=== PATIENT | male | born 1985 | race Caucasian/White ===

== ENCOUNTER 2024-12-13 19:27 | Emergency (ER) | payer SELFPAY ==
[2024-12-13] VITALS (7 sets, daily range): BP systolic 108–129; BP diastolic 63–89; PULSE 74–118; RESP 13–95; TEMP 36.5; O2SAT 94–100
[2024-12-13 22:37] LABS: Hematocrit 37.3 % (42.0-52.0); Hemoglobin 12.1 g/dL (14.0-18.0); Mean Corpuscular HGB Conc 32.4 g/dl (32-36); Mean Corpuscular Hemoglobin 28.9 pg (26-34); Mean Corpuscular Volume 89.2 fl (80-100); Mean Platelet Volume 9.3 fl (7.4-10.4); Platelet Count Result 84 k/mm3 (150-375); Red Blood Count 4.18 M/mm3 (4.6-6.20); White Blood Count 5.6 K/mm3 (4.5-10.0)
--- OUTSIDE RECORDS SUMMARY | 2024-12-13 22:41 | XMS_ITS | Continuity of Care Document ---
Author Organization [facility] Address [address] [place] [address] Phone Care Team Providers Care Isotope Hydrologist Name Role Phone Dean Cruz D.D.S Unavailable Unavailabl e Allergies, Adverse Reactions, Alerts Substance Reaction Status Criticality No Known Allergies Active No Inform ation Procedures Procedure Date Extraction, Erupted Tooth Or Exposed Malissa t (Elevati Patient Education Extraction, Erupted Tooth Or Exposed Malissa t (Elevati Patient Summary Office Visit For Observation (During Reg ularly Darvin Patient Education Intraoral Periapical First Radiographic Image Patient Summary Advance Directives Directive Yes / No Effective Date File Name No Information Encounters Encounter Description Practice Location Reason(s) For Visit Diagnoses Date Provider Providers Copied on Encounter [facility], [address] [place] [address], [id number], [place] tel:[phone] [facility] Complete loss of teeth due to other specified cause, unspecified class Anthony Moran. [address], [place], [place], [id number], [place]. tel:[phone] [facility], [address] [place] [address], [id number], [place] tel:[phone] [facility] Encounter for dental examination and cleaning with abnormal findings Conrad Light. [facility], [place], [address]. tel:[phone] Family History Family Member Type Diagnosis Age At Onset No Information Payers Payer name Insurance type Covered green party ID Susana cowan(s) Padmini [facility] [id number] Social History Type Description Quantity Date Captured Comments Alcohol Use Details Unknown Caffeine Use Details Unknown Tobacco Use Status Current non-smoker Smoking Status Never smoker Non-Smoking Tobacco Use Details : No Details Available : No Details Available Sex Male Chief Complaint And Reason For Visit No Information Plan Of Treatment Date Type Action Status Goal Tdap. Due on due Goal Lipid panel. Due on 021 due Goal Influenza vaccine. Due on due Goal Td vaccine. Due on due Goal PPD (TST). Due on due Goal Hematocrit. Due on due History Of Present Illness Encounter Date Complaint History Of Prese nt Illness No Information Instructions Date Instruction Additional Infor mation No Information Assessments Type Assessment Date No Information
--- OUTSIDE RECORDS SUMMARY | 2024-12-13 22:41 | XMS_ITS | Encounter Summary ---
Author Organization [facility] Address [address] [place] [address] Care Team Providers Care Slime Plant Operator Helper Name Role Phone Berhane Soares MD Primary Care Provider + [phone] Encounter Details Date Type Department Care Team (Latest Contact Info) Description 10/20/2024 Results Follow-Up [facility] Gastroenterology at [address] [place] [address] Steven Reyes NP 4 [facility] [address] [place], [place] [id number] [place] Hepatobiliary Imaging [facility] Social History Tobacco Use Types Packs/Day Years Used Date Smoking Tobacco: Some Days Cigarettes Smokeless Tobacco: Never [facility] Utilities Answer Date Recorded In the past 12 months has [employer], gas, oil, or water company threatened to shut off services in your home? No 09/10/2024 Social Connection and Isolat ion Panel [NHANES] Answer Date Recorded In a typical week, how many times do you talk on the phone with family, friends, or neighbors? More than three times a week 09/10/2024 How often do you get togethe r with friends or relatives? Twice a week 09/10/2024 How often do you attend chur ch or voodoo services? Never 09/10/2024 Do you belong to any clubs o r organizations such as yazdanism groups, unions, fraternal or athletic groups, or school groups? No 09/10/2024 How often do you attend meet ings of the clubs or organizations you belong to? Never 09/10/2024 Are you , , di vorced, , never , or living with a partner? Never 09/10/2024 AUDIT-C Answer Date Recorded Q1: How often do you have a drink containing alcohol? 4 or more times a week 10/07/2024 Q2: How many drinks containi ng alcohol do you have on a typical day when you are drinking? Patient does not drink Q3: How often do you have si x or more drinks on one occasion? Less than monthly 10/07/2024 Overall Financial Resource Strain (CARDIA) Answe r Date Recorded How hard is it for you to pa y for the very basics like food, housing, medical care, and heating? Not hard at all 09/10/2024 PHQ-2 Answer Date Recorded PHQ-2 Total Score (If total score is 3 or more points, staff should administer the PHQ-9) 0 10/09/2024 Hunger Vital Sign Answer Date Recorded Within the past 12 months, y ou worried that your food would run out before you got the money to buy more. Never true 09/10/19 25 Within the past 12 months, t he food you bought just didn't last and you didn't have money to get more. Never true 09/10/2024 PRAPARE - Transportation Answer Date Re corded In the past 12 months, has l ack of transportation kept you from medical appointments or from getting medications? No 08/17 In the past 12 months, has l ack of transportation kept you from meetings, work, or from getting things needed for daily living? No 09/10/2024 Housing Stability Vital Sign Answer Alessandro e Recorded In the last 12 months, was t here a time when you were not able to pay the mortgage or rent on time? No 09/10/2024 In the past 12 months, how m any times have you moved where you were living? 0 09/10/2024 At any time in the past 12 m [facility], were you homeless or living in a [place] facility (including now)? No 09/10/2024 Personal Safety Answer Date Recorded Have you ever been in or are you currently in a harmful physical or emotional relationship or is someone making you feel afraid or unsafe? Denies 09/08/2024 Sex and Gender Information Value Date Recorded Sex Assigned at Not on file Legal Sex Male 1:42 PM CDT Gender Identity Not on file Sexual Orientation Not on file documented as of this encounter Miscellaneous Notes * Result Encounter Note - Steven Reyes NP - 10/20/2024 2:28 PM CDT HIDA scan normal. Gallbladder appears to be functioning without issue and not contributing to symptoms. documented in this encounter Plan of Treatment Not on file documented as of this encounter Visit Diagnoses Not on filedocumented in this encounter Care Teams Slime Plant Operator Helper Relationship Specialty Start Date End Date Berhane Soares MD [address] [facility] [address] MOHAN [address] [place] [id number] PCP - General Family Medicine 09/09/24 documented as of this encounter
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
--- OUTSIDE RECORDS SUMMARY | 2024-12-13 22:41 | XMS_ITS | Continuity of Care Document ---
Author Organization [facility] Address [address] [place] [address] Phone Care Team Providers Care Rate Clerk Passenger Name Role Phone David Mujica Unavailable Unavailable Procedures Procedure Date TEAM CONF W/PAT BY CHANTEL PRO Advance Directives Directive Yes / No Effective Date File Name No Information Encounters Encounter Description Practice Location Reason(s) For Visit Diagnoses Date Provider Providers Copied on Encounter [facility], [address] [place] [address], [id number], [place] tel:[phone] [facility] No Information Tang Hernandez. [address] [place], [address], [place]. tel:[phone] TEAM CONF W/PAT BY HC PRO [facility], [address] [place] [address], [id number], tel:[phone] [facility] ED Counseling, unspecified Rink Rat. [address] [place], [place], [id number]. tel:[phone] Family History Family Member Type Diagnosis Age At Onset No Information Payers Payer name Insurance type Covered constitution party ID Authoriza tion(s) No Information Social History Type Description Quantity Date Captured Comments Sex Male Smoking Status No Information Chief Complaint And Reason For Visit No Information Reason For Referral Reason For Referral No Information History Of Present Illness Encounter Date Complaint History Of Prese nt Illness No Information Functional Status Date Functional Assessmen t No Information Instructions Date Instruction Additional Infor mation No Information Assessments Type Assessment Date No Information Patient Care Teams Name Effective Dates (start - stop) Status Members No Information
--- OUTSIDE RECORDS SUMMARY | 2024-12-13 22:42 | XMS_ITS | Referral Summary ---
Author Organization [facility] Address [address] [place] [address] Care Team Providers Care Thermostat Maker Name Role Phone Berhane Soares MD Primary Care Provider Encounters Date Type Department Care Team Description 11/21/2024 9:30 AM CDT Office Visit [facility] at [address] [phone] Berhane Soares MD Alcohol use disorder (Primary Dx); Alcoholic cirrhosis of liver with ascites (HCC); Hepatic encephalopathy (HCC); Anxiety; Nausea and vomiting, unspecified vomiting type 11/17/[address] [facility] at [address] [phone] Berhaen Soares MD 11/13/2024 8:45 AM CDT - 11/15/2024 2:28 PM CDT Hospital Encounter [facility] [address] [place] [id number] Bogdan Zambrano MD Richards, John Albert Jr., MD Alcohol use disorder (Primary Dx); RUQ pain; Nausea and vomiting, unspecified vomiting type Discharge Disposition: Discharge to home or self care 11/14/2024 Documentation [facility] Warm Hand Off Program [address] [place] [address] Margarita Martinez 10/31/2024 [facility] ED Outreach [facility] Care Organization [address] [place] [id number] Elvia Naidu CMA 10/30/2024 6:28 PM CDT - 10/30/2024 9:41 PM CDT Emergency [facility] Emergency Department [address] [place] [address] Yaakov Pittman MD Wala, Cosme Gutierrez MD Abdominal pain, generalized (Primary Dx) Discharge Disposition: Discharge to home or self care 10/20/2024 Results Follow-Up [facility] Gastroenterology at [address] [place] [address] Steven Reyes NP [place] [facility]atobiliary [facility] 10/17/2024 11:50 AM CDT - 10/17/2024 11:59 PM CDT Hospital Encounter [facility] [address] [place] [address] RUQ pain; Nausea without vomiting Discharge Disposition: Discharge to home or self care 10/14/[address] [facility] Gastroenterology at [address] [place] [address] Jenny Connolly, KEVIN 10/13/2024 Telephone [facility] at [address] [place] [address] Jenny Connolly, DIETETIC TECHNICIAN 10/10/[address] [facility] Primary Care at [address] [place] [address] Berhane Soares MD Prior Auth - Anusol 10/10/2024 Results Follow-Up [facility] Gastroenterology at [address] [place] [address] Steven Reyes NP CBC with auto differential, [id number] , Tumor Marker, Hepatic function panel, Additional followed-up results: 2 10/10/[address] [facility] Residency [facility] at [address] [place] [address] Berhane Soares MD Pneumonia due to infectious organism, unspecified laterality, unspecified part of lung (Primary Dx) 10/09/2024 3:00 PM CDT Office Visit [facility] at [place] [address] [facility] [address] [place] [phone] Berhane Soares MD Acute cough (Primary Dx); Bleeding internal hemorrhoids; Hepatic encephalopathy (HCC); Folate deficiency; Alcoholic cirrhosis of liver with ascites (HCC); Elevated bilirubin; Difficulty sleeping; Wheezing 10/07/2024 9:00 AM CDT Lab [address] Alcoholic hepatitis with ascites (HCC); Hepatic steatosis; Hepatomegaly 10/07/2024 8:15 AM CDT Office Visit [facility] Gastroenterology at [address] [place] [address] Steven Reyes NP Alcoholic hepatitis with ascites (HCC) (Primary Dx); Hepatic steatosis; Hepatomegaly; Coagulopathy; Bleeding internal hemorrhoids; Constipation, unspecified constipation type; RUQ pain; Erosive esophagitis; Gastropathy; Leg swelling; Nausea without vomiting 09/09/2024 4:22 AM ARBORICULTURE INSTRUCTOR - 09/12/2024 3:12 PM ARBORICULTURE INSTRUCTOR Hospital Encounter [facility] [address] [place] [address] Aleja Coates MD Okonkwo, Kasiemobi Bernice, MD Abdominal pain (Primary Dx); Hepatosplenomegaly; Alcoholic hepatitis, unspecified whether ascites present (HCC); Rectal bleeding Discharge Disposition: Discharge to home or self care from Last 3 Months Allergies Active Allergy Reactions Criticality Noted Date Comments [place] Anaphylaxis High 08/07/2024 Medications benzonatate (TESSALON) 200 mg capsule Take 1 capsule (200 mg total) by mouth 3 (three) times a day 40 capsule Active fluticasone propionate (FLONASE) 50 mcg/actuation nasal spray Administer 2 sprays into each nostril 2 (two) times a day 1 each Active hydrOXYzine (ATARAX) 25 mg tablet Take 1 tablet (25 mg total) by mouth every 8 (eight) hours as needed for anxiety 90 tablet 02/28/2 025 Active Additional Information Patient not taking.Reported on 11/21/2024 simethicone (MYLICON) 125 mg chewable tablet Take 1 tablet (125 mg total) by mouth 4 (four) times a day as needed (cramping/bloat ing/gas/nausea) 120 tablet 3 Active albuterol HFA (PROVENTIL HFA,VENTOLIN HFA,PROAIR HFA) 90 mcg/actuation inhaler Inhale 2 puffs every 6 (six) hours as needed for wheezing 3 each 4 025 2025 Active budesonide-formot Julisa (SYMBICORT) 80-4.5 mcg/actuation inhaler Inhale 2 puffs 2 (two) times a day Rinse mouth with water after use. Do not swallow. 1 each Active hydrocortisone 2.5 % creamIndications: Internal hemorrhoids Apply topically 2 (two) times a day 453.6 g Active oxyBUTYnin XL (DITROPAN-XL) 10 mg 24 hr tablet Take 1 tablet (10 mg total) by mouth daily 30 tablet Active guaiFENesin ER (MUCINEX) 600 mg 12 hr tablet Take 1 tablet (600 mg total) by mouth 2 (two) times a day 60 tablet Active metoclopramide (REGLAN) 10 mg tablet Take 1 tablet (10 mg total) by mouth 3 (three) times a day before meals for 14 doses 14 tablet Active chlordiazePOXIDE (LIBRIUM) 25 mg capsule Take 2 capsules (50 mg total) by mouth 2 (two) times a day for 1 day, THEN 1 capsule (25 mg total) 2 (two) times a day for 1 day, THEN 1 capsule (25 mg total) daily for 1 day. 7 capsule Active lactulose solution 10 gram/15mLIndicati ons:Hepatic encephalopathy (HCC) Take 15-30 mL up to 3 times daily for constipation management. 946 mL 5 Active busPIRone (BUSPAR) 15 mg tabletIndications :Anxiety Take 1 tablet (15 mg total) by mouth 2 (two) times a day 60 tablet 2024 Active ondansetron (ZOFRAN) 4 mg tabletIndications :Nausea and vomiting, unspecified vomiting type Take 1 tablet (4 mg total) by mouth 4 (four) times a day as needed for nausea or vomiting 20 tablet [address] (PROTONIX) 40 mg EC tabletIndications :Nausea and vomiting, unspecified vomiting type Take 1 tablet (40 mg total) by mouth daily 30 tablet 3 Active traZODone (DESYREL) 50 mg tabletIndications :Anxiety Take 1 tablet (50 mg total) by mouth nightly as needed for sleep 90 tablet 3 2025 Active naltrexone microspheres (VIVITROL) 380 mg suspension,extend ed rel reconIndications: Alcohol use disorder Inject 380 mg into the muscle as instructed every 30 (thirty) days 1.2 each Active folic acid (FOLVITE) 1 mg tablet Take 1 tablet (1 mg total) by mouth daily 30 tablet 1 2024 Discontinued(S top Taking at Discharge) pentoxifylline ER (TRENtal) 400 mg CR tablet Take 1 tablet (400 mg total) by mouth 3 (three) times a day with meals 90 tablet 1 2024 Discontinued(S top Taking at Discharge) traMADoL (ULTRAM) 50 mg tablet Take 1 tablet (50 mg total) by mouth 2 (two) times a day as needed for pain for up to 7 days 14 tablet 2024 Discontinued(S top Taking at Discharge) ondansetron (ZOFRAN) 4 mg tablet Take 1 tablet (4 mg total) by mouth 4 (four) times a day as needed for nausea or vomiting 20 tablet 3 2024 Discontinued(R eorder) lactulose solution 10 gram/15mL Take 15-30 mL up to 3 times daily for constipation management. 946 mL 5 2024 Discontinued(R eorder) pantoprazole DR (PROTONIX) 40 mg EC tablet Take 1 tablet (40 mg total) by mouth daily 30 tablet 3 2024 Discontinued(R eorder) traZODone (DESYREL) 50 mg tablet Take 1 tablet (50 mg total) by mouth nightly as needed for sleep 30 tablet 025 2024 Discontinued(R eorder) busPIRone (BUSPAR) 5 mg tablet Take 1 tablet (5 mg total) by mouth 2 (two) times a day 60 tablet 025 2024 Discontinued cyclobenzaprine (FLEXERIL) 10 mg tablet Take 1 tablet (10 mg total) by mouth 2 (two) times a day as needed for muscle spasms for up to 7 days 14 tablet 025 2024 Discontinued(S top Taking at Discharge) chlordiazePOXIDE (LIBRIUM) 25 mg capsule Take 2 capsules (50 mg total) by mouth 2 (two) times a day for 1 day, THEN 1 capsule (25 mg total) 2 (two) times a day for 1 day, THEN 1 capsule (25 mg total) daily for 1 day. 7 capsule 025 2024 Discontinued Active Problems Problem Noted Date Diagnosed Date Acute alcoholic gastritis with hemorrhage 2024 RUQ pain 11/15/2024 Hypokalemia 11/14/2024 Nausea & vomiting 11/13/2024 Assessment & Plan (11/21/2024 10:53 AM CDT): Likely in the setting of encephalopathy/cirrhosis/alcoholic gastropathy; we will provide refills for symptomatic relief of nausea. - Zofran 4 mg PRN Metabolic acidosis 11/13/2024 SERA (generalized anxiety disorder) 11/13/2024 Urge incontinence of urine 11/13/2024 Anxiety 10/20/2024 Assessment & Plan (11/21/2024 10:52 AM CDT): Reports significant improvement with BuSpar 5 mg, does report that he wishes it lasted longer throughout the day. - BuSpar increased from 5 mg starting dose to 15 mg b.i.d - If adequate response, consider increasing BuSpar 15 mg t.i.d. Assessment & Plan (10/20/2024 2:45 PM CDT): Known hx, chronic, stable. Pt previously trialed Prozac which he reports didn't work well for him. - Trial of Buspar 5 mg BID and reassess. Wheezing 10/09/2024 Acute cough 10/09/2024 Assessment & Plan (10/09/2024 5:07 PM CDT): Acute, uncontrolled; he reports that he's been coughing for the past 3-4 days. Suspected PNA. Swab testing is negative; this does not r/o infx etiology; he has significant sputum productive cough with wheezing. - CXR for wheezing. - Antibiotics; Augmentin 875 mg for 10 days. - inhalers prescribed as he is using his wifes. Difficulty sleeping 10/09/2024 Assessment & Plan (10/09/2024 5:06 PM CDT): Known hx, chronic, stable. While hospitalized he reports trazodone being helpful. - Will provide Rx for 30 days and reassess at next visit Hepatic steatosis 10/07/2024 Hepatomegaly 10/07/2024 Bleeding internal hemorrhoids 10/07/2024 Assessment & Plan (10/09/2024 4:55 PM CDT): Known history, chronic, stable. Patient reports he is out of hydrocortisone suppositories and is requesting refills. He was scoped by GI and no identifiable causes of bleeding were identified other than internal hemorrhoids. - Anusol 25 mg suppository refilled Erosive esophagitis 10/07/2024 Leukocytosis 09/09/2024 Dysuria 09/09/2024 Melena 09/09/2024 URI (upper respiratory infection) 09/09/2024 Rectal bleeding 09/08/2024 Alcoholic cirrhosis of liver with ascites 2024 Assessment & Plan (10/09/2024 4:55 PM CDT): Known history, chronic, recently completed visit with GI. They recommended to continue lactulose therapy and close follow-up - Continue GI workup/management; lactulose Alcohol withdrawal delirium 08/23/2024 Macrocytic anemia 08/23/2024 Folate deficiency 08/23/2024 Assessment & Plan (10/09/2024 4:59 PM CDT): Known hx, chronic. - continue to replace folate. Hepatic encephalopathy 08/23/2024 Assessment & Plan (11/21/2024 10:51 AM CDT): Known history, chronic, stable. We will provide refills of lactulose, he reports compliance daily - Refill lactulose Assessment & Plan (10/09/2024 4:59 PM CDT): Known hx, chronic, stable. Remains abstinent for 56 days. Following up w/ GI; mood appropriate no concerns for encephalopathy today. He reports compliance with lactulose and that he had stopped it for several months before leading up to his hospitalization. - continue current management. Alcoholic hepatitis with ascites 08/21/2024 Coffee ground emesis 08/07/2024 SIRS (systemic inflammatory response syndrome) 0 08/07/2024 Acute on chronic anemia 08/07/2024 Alcohol use disorder 08/07/2024 Assessment & Plan (11/21/2024 10:50 AM CDT): Relapse in the setting of ETOH use disorder. Successfully remain clean for 100 days. Established with WHO and has adequate social support. - Vivitrol as monthly injections to help with cravings (patient reports insurance coverage has lapsed and will resume December 14, 2024) Sepsis 08/07/2024 Upper GI bleed 08/07/2024 Elevated bilirubin 08/07/2024 Assessment & Plan (10/09/2024 5:03 PM CDT): Per labs done by GI on 10/07, continues to have persistently elevated bilirubin but significantly improved from admission. Discussed and educated about bilirubin and how it is a RBC product breakdown and that lactulose will help with skin coloration. - Continue lactulose and management per GI Moderate protein-calorie malnutrition 08/07/2024 Fever, unspecified fever cause 08/06/2024 Abdominal pain 08/06/2024 Resolved Problems Problem Noted Date Diagnosed Date Resolved Date Cirrhosis 09/09/2024 10/07/2024 Hepatitis 09/09/2024 10/07/2024 Social History Tobacco Use Types Packs/Day Years Used Date Smoking Tobacco: Some Days Cigarettes 0.7 0.4 Started: 2024 Smokeless Tobacco: Never Tobacco Cessation:Ready to Q uit: Not Asked; Counseling Given: Not Answered [facility] Utilities Answer Date Recorded In the past 12 months has th e electric, gas, oil, or water company threatened to shut off services in your home? No 11/14/2024 Social Connection and Isolat ion Panel [NHANES] Answer Date Recorded In a typical week, how many times do you talk on the phone with family, friends, or neighbors? More than three times a week 11/14/2024 How often do you get togethe r with friends or relatives? Twice a week 11/14/2024 How often do you attend chur ch or druze services? Never 11/14/2024 Do you belong to any clubs o r organizations such as mormonism groups, unions, fraternal or athletic groups, or school groups? No 11/14/2024 How often do you attend meet ings of the clubs or organizations you belong to? Never 11/14/2024 Are you , , di vorced, , never , or living with a partner? 11/14/2024 AUDIT-C Answer Date Recorded Q1: How often do you have a drink containing alcohol? Never 11/21/2024 Q2: How many drinks containi ng alcohol do you have on a typical day when you are drinking? Patient does not drink Q3: How often do you have si x or more drinks on one occasion? Never 11/21/2024 Overall Financial Resource Strain (CARDIA) Answe r Date Recorded How hard is it for you to pa y for the very basics like food, housing, medical care, and heating? Not hard at all 11/14/2024 PHQ-2 Answer Date Recorded PHQ-2 Total Score (If total score is 3 or more points, staff should administer the PHQ-9) 0 11/21/2024 Hunger Vital Sign Answer Date Recorded Within the past 12 months, y ou worried that your food would run out before you got the money to buy more. Never true 11/15/19 25 Within the past 12 months, t he food you bought just didn't last and you didn't have money to get more. Never true 11/14/2024 PRAPARE - Transportation Answer Date Re corded In the past 12 months, has l ack of transportation kept you from medical appointments or from getting medications? No 08/2024 In the past 12 months, has l ack of transportation kept you from meetings, work, or from getting things needed for daily living? No 11/14/2024 Housing Stability Vital Sign Answer Alessandro e Recorded In the last 12 months, was t here a time when you were not able to pay the mortgage or rent on time? No 11/14/2024 In the past 12 months, how m any times have you moved where you were living? 0 11/14/2024 At any time in the past 12 m [facility], were you homeless or living in a prison (including now)? No 11/14/2024 Personal Safety Answer Date Recorded Have you ever been in or are you currently in a harmful physical or emotional relationship or is someone making you feel afraid or unsafe? Denies 11/13/2024 Sex and Gender Information Value Date Recorded Sex Assigned at Not on file Legal Sex Male 1:42 PM CDT Gender Identity Not on file Sexual Orientation Not on file Last Filed Vital Signs Vital Sign Reading Time Taken Comments Blood Pressure 122/64 11/21/2024 9:39 AM CDT Pulse 96 11/21/2024 9:39 AM CDT Temperature 36.5 C (97.7 F) 11/15/2024 10:43 AM CDT Respiratory Rate 18 11/21/2024 9:39 AM CDT Oxygen Saturation 99% 11/21/2024 9:39 AM CDT Inhaled Oxygen Concentration - - Weight 64.5 kg (142 lb 1.6 oz) 11/21/2024 9:39 A M CDT Height 167.6 cm (5' 5.98) 11/21/2024 9:39 AM CD T Body Mass Index 22.95 11/21/2024 9:39 AM CDT Plan of Treatment Not on file Procedures Procedure Name Priority Date/Time Associated Diagnosis Comments MAGNESIUM Routine 11/15/2024 10:11 AM CDT EGFR Routine 11/15/2024 5:31 AM CDT CBC WITHOUT DIFFERENTIAL Routine 11/15/2024 5:31 AM CDT COMPREHENSIVE METABOLIC PANEL Routine 11/15/2024 5:31 AM CDT EGFR Routine 11/14/2024 8:17 AM CDT CBC WITHOUT DIFFERENTIAL Routine 11/14/2024 8:17 AM CDT COMPREHENSIVE METABOLIC PANEL Routine 11/14/2024 8:17 AM CDT XR CHEST 1 VIEW ED 11/13/2024 11:07 AM CDT US RUQ ED 11/13/2024 10:06 AM CDT ANTIBODY SCREEN STAT 11/13/2024 10:06 AM CDT ABO/RH STAT 11/13/2024 10:06 AM CDT TYPE AND SCREEN STAT 11/13/2024 10:06 AM CDT AMMONIA STAT 11/13/2024 9:07 AM CDT MAGNESIUM Add-On 11/13/2024 8:48 AM CDT EGFR STAT 11/13/2024 8:48 AM CDT ACETAMINOPHEN LEVEL STAT 11/13/2024 8 :48 AM CDT DIFFERENTIAL AUTO STAT 11/13/2024 8:4 8 AM CDT PROTIME-INR STAT 11/13/2024 8:48 AM CDT LIPASE STAT 11/13/2024 8:48 AM CDT COMPREHENSIVE METABOLIC PANEL STAT 11/13/2024 8:48 AM CDT CBC WITH AUTO DIFFERENTIAL STAT 11/13/2024 8:[address] ABDOMEN PELVIS W CONTRAST ED 10/30/2024 7:40 PM CDT DRUGS OF ABUSE SCREEN, URINE WITH REFLEX CONFIRMATION Routine 10/30/2024 7:38 PM CDT EGFR STAT 10/30/2024 7:15 PM CDT ETHANOL Routine 10/30/2024 7:15 PM CDT CREATINE KINASE (CK), TOTAL STAT 10/30/2024 7:15 PM CDT COMPREHENSIVE METABOLIC PANEL STAT 10/30/2024 7:15 PM CDT URINALYSIS AND REFLEX TO MICROSCOPIC AND CULTURE STAT 10/30/2024 1:45 PM CDT EGFR STAT 10/30/2024 1:38 PM CDT DIFFERENTIAL AUTO STAT 10/30/2024 1:3 8 PM CDT LIPASE STAT 10/30/2024 1:38 PM CDT COMPREHENSIVE METABOLIC PANEL STAT 10/30/2024 1:38 PM CDT CBC WITH AUTO DIFFERENTIAL STAT 10/30/2024 1:38 PM CDT NM HEPATOBILIARY IMAGING W PHARMACEUTICAL INTERVENTION Schedule Routine, Read Routine (OP Routine) 10/17/2024 2:07 PM CDT RUQ pain Nausea without vomiting POC INFLUENZA A/B, COVID-19 ANTIGEN Routine 10/09/2024 2:50 PM CDT Acute cough DIFFERENTIAL AUTO Routine 10/07/2024 8:5 9 AM CDT Alcoholic hepatitis with ascites (HCC) Hepatic steatosis Hepatomegaly FIBRO TEST-ACTI TEST Routine 10/07/2024 8:59 AM CDT Alcoholic hepatitis with ascites (HCC) Hepatic steatosis Hepatomegaly HEPATIC FUNCTION PANEL Routine 10/07/2024 8:59 AM CDT Alcoholic hepatitis with ascites (HCC) Hepatic steatosis Hepatomegaly [id number], TUMOR MARKER Routine 10/07/2024 8:59 AM CDT Alcoholic hepatitis with ascites (HCC) Hepatic steatosis Hepatomegaly CBC WITH AUTO DIFFERENTIAL Routine 10/07/2024 8:59 AM CDT Alcoholic hepatitis with ascites (HCC) Hepatic steatosis Hepatomegaly MANUAL DIFFERENTIAL Routine 09/12/2024 7 :20 AM ARBORICULTURE INSTRUCTOR EGFR Routine 09/12/2024 7:20 AM ARBORICULTURE INSTRUCTOR ZINC Routine 09/12/2024 7:20 AM ARBORICULTURE INSTRUCTOR FIBRINOGEN Routine 09/12/2024 7:20 AM ARBORICULTURE INSTRUCTOR PROTIME-INR Routine 09/12/2024 7:20 AM ARBORICULTURE INSTRUCTOR COMPREHENSIVE METABOLIC PANEL Routine 09/12/2024 7:20 AM ARBORICULTURE INSTRUCTOR CBC WITH AUTO DIFFERENTIAL Routine 09/12/2024 7:20 AM ARBORICULTURE INSTRUCTOR HEPATITIS PANEL, ACUTE Routine 08/08/2024 6:10 AM ARBORICULTURE INSTRUCTOR from Last 3 Months or Most Recently Relevant to Health Maintenance Results * Magnesium (11/15/2024 10:11 AM CDT) Magnesium 1.4 1.4 - 2.5 mg/dL Blood 11/15/2024 10:1 1 AM CDT 11/15/2024 10:15 AM CDT us Inocencio Marie Jr., MD LAB BLOOD ORDERABLE S Final Result [facility] ([place]) [facility] Department [place] [address] * eGFR (11/15/2024 5:31 AM CDT) eGFR >90 >=60 mL/min/1. 73 m2 Comment: Interpretive Data Reference Interval Normal >/= 90 mL/min/1.73m2 Mildly decreased* 60 - 89 mL/min/1.73m2 Mildly to moderately decreased 45 - 59 mL/min/1.73m2 Moderately to severely decreased 30 - 44 mL/min/1.73m2 Severely decreased 15 - 29 mL/min/1.73m2 Kidney Failure < 15 mL/min/1.73m2 *Relative to young adult level Estimated glomerular filtration rate is determined by the 2020 CKD-EPI equation recommended by the National Kidney Foundation (A Unifying Approach to GFR Estimation: Recommendations of the NKF-ASK Task Force on Reassessing the Inclusion of Race in Diagnosing Kidney Disease, JASN 2020). The CKD-EPI equation should not be used for patients with unstable renal function and has not been validated in children and those over 70. Current interpretive data was last reviewed 2021. Blood 11/15/2024 5:31 AM CDT 11/15/2024 6:24 AM CDT us Inocencio Marie Jr., MD LAB BLOOD ORDERABLE S Final Result [facility] ([place]) [address] [facility] Department [place] [address] * (ABNORMAL) CBC without differential (11/15/2024 5:31 AM CDT) WBC 4.83 3.80 - 9.90 K/cumm Hgb 10.9(L) 13.0 - 17.5 g/dL [facility] ([place]) Hct 32.1(L) 38.9 - 50.3 % [facility] ([place] Plt 120(L) 150 - 400 K/cumm [facility] ([place] MPV 9.2 9.1 - 12.3 fL [facility] ([place]) RBC 3.61(L) 4.30 - 5.80 M/cumm [facility] ([place]) MCV 88.9 81.3 - 96.4 fL [facility] ([place] MCH 30.2 27.1 - 33.3 pg [facility] ([place] MCHC 34.0 32.3 - 35.7 g/dL [facility] ([place] RDW CV 13.0 11.1 - 14.9 % [facility] ([place] RDW SD 41.9 35.7 - 48.1 fL [facility] ([place] NRBC abs 0.00 0.00 - 0.01 K/cumm [facility] ([place]) Blood 11/15/2024 5:31 AM CDT 11/15/2024 6:24 AM CDT us Inocencio Marie Jr., MD LAB BLOOD ORDERABLE S Final Result [facility] ([place] [address] [facility] Department [place] [address] * (ABNORMAL) Comprehensive metabolic panel (11/15/2024 5:31 AM CDT) Sodium 138 135 - 145 mmol/L Potassium, pl 3.5 3.3 - 4.9 mmol/L [facility] ([place]) Chloride 102 97 - 110 mmol/L [facility] ([place]) CO2 24 22 - 32 mmol/L [facility] ([place] Anion gap 12 2 - 15 mmol/L [facility] ([place]) BUN <3(L) 6 - 25 mg/dL [facility] ([place]) Creatinine 0.66(L) 0.80 - 1.30 mg/dL [facility] ([place]) Comment:Icteric sample, test results may be affected. Glucose 91 70 - 199 mg/dL [facility] ([place]) Comment: Interpretive Data Fasting glucose >/= 126 mg/dl is diagnostic for diabetes. Fasting is defined as no caloric intake for at least 8 hours. Fasting glucose between 100 mg/dl to 125 mg/dl is diagnostic of prediabetes. In a patient with classic symptoms of hyperglycemia or hyperglycemic crisis, a random glucose >/= 200 mg/dl is diagnostic for diabetes. In the absence of unequivocal hyperglycemia, results should be confirmed by repeat testing. The classification and Diagnosis of Diabetes Diabetes Care 2021; 46: S19-S40. Current interpretive data was last revised 2022. Calcium 8.5 8.5 - 10.3 mg/dL [facility] ([place]) Bilirubin, total 2.0(H) 0.1 - 1.2 mg/dL [facility] ([place]) Protein, pl 6.6 6.5 - 8.5 g/dL [facility] ([place]) Albumin 3.3(L) 3.5 - 5.0 g/dL [facility] ([place]) Alk phos 268(H) 40 - 130 Units/L [facility] ([place]) ALT 14 7 - 55 Units/L [facility] ([place]) AST 39 10 - 50 Units/L [facility] ([place]) Blood 11/15/2024 5:31 AM CDT 11/15/2024 6:24 AM CDT Inocencio Marie Jr., MD LAB BLOOD ORDERABLE S Final Result [facility] ([place] Department [place] [address] * eGFR (11/14/2024 8:17 AM CDT) eGFR >90 >=60 mL/min/1. 73 m2 Comment: Interpretive Data Reference Interval Normal >/= 90 mL/min/1.73m2 Mildly decreased* 60 - 89 mL/min/1.73m2 Mildly to moderately decreased 45 - 59 mL/min/1.73m2 Moderately to severely decreased 30 - 44 mL/min/1.73m2 Severely decreased 15 - 29 mL/min/1.73m2 Kidney Failure < 15 mL/min/1.73m2 *Relative to young adult level Estimated glomerular filtration rate is determined by the 2020 CKD-EPI equation recommended by the National Kidney Foundation (A Unifying Approach to GFR Estimation: Recommendations of the NKF-ASK Task Force on Reassessing the Inclusion of Race in Diagnosing Kidney Disease, JASN 2020). The CKD-EPI equation should not be used for patients with unstable renal function and has not been validated in children and those over 70. Current interpretive data was last reviewed 2021. Blood 11/14/2024 8:17 AM CDT 11/14/2024 8:37 AM CDT us Inocencio Mraie Jr., MD LAB BLOOD ORDERABLE S Final Result Performing Organization Address City/State/[facility] de Phone Number [facility] ([place]) 1 [facility] Department [place] [address] * (ABNORMAL) CBC without differential (11/14/2024 8:17 AM CDT) WBC 5.11 3.80 - 9.90 K/cumm Hgb 10.7(L) 13.0 - 17.5 g/dL [facility] ([place]) Hct 31.0(L) 38.9 - 50.3 % [facility] ([place]) Plt 118(L) 150 - 400 K/cumm [facility] ([place]) MPV 8.8(L) 9.1 - 12.3 fL [facility] ([place]) RBC 3.53(L) 4.30 - 5.80 M/cumm [facility] ([place]) MCV 87.8 81.3 - 96.4 fL [facility] ([place]) MCH 30.3 27.1 - 33.3 pg [facility] ([place]) MCHC 34.5 32.3 - 35.7 g/dL [facility] ([place]) RDW CV 12.8 11.1 - 14.9 % [facility] ([place]) RDW SD 40.4 35.7 - 48.1 fL [facility] ([place]) NRBC abs 0.00 0.00 - 0.01 K/cumm [facility] ([place]) Blood 11/14/2024 8:17 AM CDT 11/14/2024 8:37 AM CDT us Inocencio Marie Jr., MD LAB BLOOD ORDERABLE S Final Result [facility] ([place]) 1 [facility] Department [place] [address] * (ABNORMAL) Comprehensive metabolic panel (11/14/2024 8:17 AM CDT) Sodium 134(L) 135 - 145 mmol/L Potassium, pl 3.2(L) 3.3 - 4.9 mmol/L [facility] ([place]) Chloride 96(L) 97 - 110 mmol/L [facility] ([place]) CO2 24 22 - 32 mmol/L [facility] ([place]) Anion gap 14 2 - 15 mmol/L [facility] ([place]) BUN <3(L) 6 - 25 mg/dL [facility] ([place]) Creatinine 0.63(L) 0.80 - 1.30 mg/dL [facility] ([place]) Comment:Icteric sample, test results may be affected. Glucose 126 70 - 199 mg/dL [facility] ([place]) Comment: Interpretive Data Fasting glucose >/= 126 mg/dl is diagnostic for diabetes. Fasting is defined as no caloric intake for at least 8 hours. Fasting glucose between 100 mg/dl to 125 mg/dl is diagnostic of prediabetes. In a patient with classic symptoms of hyperglycemia or hyperglycemic crisis, a random glucose >/= 200 mg/dl is diagnostic for diabetes. In the absence of unequivocal hyperglycemia, results should be confirmed by repeat testing. The classification and Diagnosis of Diabetes Diabetes Care 2021; 46: S19-S40. Current interpretive data was last revised 2022. Calcium 8.2(L) 8.5 - 10.3 mg/dL [facility] ([place]) Bilirubin, total 2.1(H) 0.1 - 1.2 mg/dL [facility] ([place]) Protein, pl 6.6 6.5 - 8.5 g/dL [facility] ([place]) Albumin 3.3(L) 3.5 - 5.0 g/dL [facility] ([place]) Alk phos 274(H) 40 - 130 Units/L [facility] ([place]) ALT 17 7 - 55 Units/L [facility] ([place]) AST 45 10 - 50 Units/L [facility] ([place]) Blood 11/14/2024 8:17 AM CDT 11/14/2024 8:37 AM CDT us Inocencio Marie Jr., MD LAB BLOOD ORDERABLE S Final Result [facility] ([place]) 1 [facility] Department [place] [address] * XR Chest 1 View (11/13/2024 11:07 AM CDT) Anatomical Region Laterality Modality Body, Chest N/A Computed Radiogr aphy 11/13/2024 11:3 2 AM CDT Narrative 11/13/2024 11:32 AM CDT EXAM DESCRIPTION: XR CHEST 1 VIEW REASON FOR STUDY: dyspnea, c/f pna Pt arrived via EMS. Pt report been vomiting for 1x day. Pt also reports RUQ pain to the abdomen. HX of cirrhosis of the liver. TECHNIQUE: Single frontal radiographic view(s) of the chest. COMPARISON: 08/24/2024 FINDINGS: The heart size is stable. The pulmonary vasculature and mediastinum are grossly stable. There is no definite evidence of a pneumothorax. There is no definite evidence of pleural effusion. There are subtle patchy left perihilar and bibasilar airspace opacities. The osseous structures are acutely grossly stable. IMPRESSION: Subtle patchy left perihilar and bibasilar airspace opacities, which may be related to subsegmental atelectasis/scarring versus developing airspace disease. THIS IS AN ELECTRONICALLY VERIFIED FINAL REPORT 11/13/2024 11:32 AM - Electronically signed by Kaylie Echols D.O. PS: PS Report ID: [id number] Reading Location: [id number] Procedure Note Kaylie Echols, - 11/13/2024 EXAM DESCRIPTION: XR CHEST 1 VIEW REASON FOR STUDY: dyspnea, c/f pna Pt arrived via EMS. Pt report been vomiting for 1x day. Pt also reportsRUQ pain to the abdomen. HX of cirrhosis of the liver. TECHNIQUE: Single frontal radiographic view(s) of the chest. COMPARISON: 08/24/2024 FINDINGS: The heart size is stable. The pulmonary vasculature and mediastinum are grossly stable. There is no definite evidence of a pneumothorax. Thereis no definite evidence of pleural effusion. There are subtle patchy leftperihilar and bibasilar airspace opacities. The osseous structures are acutely grossly stable. IMPRESSION: Subtle patchy left perihilar and bibasilar airspace opacities, which maybe related to subsegmental atelectasis/scarring versus developing airspace disease. THIS IS AN ELECTRONICALLY VERIFIED FINAL REPORT 11/13/2024 11:32 AM - Electronically signed by Kaylie Echols D.O. PS: PS Report ID: [id number] Reading Location: [place] [address] us Bogdan Zambrano MD IMG XR PROCEDURES F inal Result * US RUQ (11/13/2024 10:06 AM CDT) Anatomical Region Laterality Modality Abdomen N/A Ultrasound 11/13/2024 10:1 0 AM CDT Narrative 11/13/2024 10:12 AM CDT EXAM DESCRIPTION: US RUQ REASON FOR STUDY: History of cirrhosis with pain, assess for portal vein thrombosis. TECHNIQUE: Ultrasound of the right upper quadrant of the abdomen was performed with grayscale and color Doppler. COMPARISON: CT abdomen and pelvis 10/30/2024. FINDINGS: PANCREAS: Visualized portions of the pancreas are within normal limits. Portions of the pancreatic body and tail are obscured due to bowel gas. LIVER: The liver is increased in echogenicity. There is a nodular surface contour. Liver measures 21.1 cm. No focal hepatic lesions are seen. Antegrade direction of flow shown in the main portal vein. There are no findings of portal vein thrombosis. No filling defects are seen where assessed sonographically. GALLBLADDER: No echogenic shadowing gallstones. There is mild gallbladder wall thickening 0.7 cm. No pericholecystic fluid. Director Epidemiology reports negative sonographic Styles's sign. BILIARY: There is no intrahepatic biliary ductal dilatation. The common bile duct measures 0.6 cm in diameter. RIGHT KIDNEY: Right kidney is 11.2 cm in length. There is no hydronephrosis. The echogenicity is normal. OTHER: No other significant finding. IMPRESSION: No evidence of portal vein thrombosis. Hepatomegaly and hepatic steatosis. Nodular surface contour of the liver consistent with cirrhosis. Gallbladder wall thickening which is nonspecific but may be related to underlying liver disease. If further assessment were needed, could consider HIDA scan. THIS IS AN ELECTRONICALLY VERIFIED FINAL REPORT 11/13/2024 10:12 AM - Electronically signed by Kostas Grove M.D. CH: MEME Report ID: [id number] Reading Location: [id number] Procedure Note Kostas Grove Jr., MD - 11/13/2024 EXAM DESCRIPTION: US RUQ REASON FOR STUDY: History of cirrhosis with pain, assess for portal vein thrombosis. TECHNIQUE: Ultrasound of the right upper quadrant of the abdomen wasperformed with grayscale and color Doppler. COMPARISON: CT abdomen and pelvis 10/30/2024. FINDINGS: PANCREAS: Visualized portions of the pancreas are within normal limits. Portions of the pancreatic body and tail are obscured due to bowel gas. LIVER: The liver is increased in echogenicity. There is a nodularsurface contour. Liver measures 21.1 cm. No focal hepatic lesions are seen. Antegrade direction of flow shown in the main portal vein. There are no findings of portal vein thrombosis. No filling defects are seen where assessed sonographically. GALLBLADDER: No echogenic shadowing gallstones. There is mildgallbladder wall thickening 0.7 cm. No pericholecystic fluid. Director Epidemiology reports negative sonographic Styles's sign. BILIARY: There is no intrahepatic biliary ductal dilatation. The commonbile duct measures 0.6 cm in diameter. RIGHT KIDNEY: Right kidney is 11.2 cm in length. There is nohydronephrosis. The echogenicity is normal. OTHER: No other significant finding. IMPRESSION: No evidence of portal vein thrombosis. Hepatomegaly and hepatic steatosis. Nodular surface contour of the liver consistent with cirrhosis. Gallbladder wall thickening which is nonspecific but may be related to underlying liver disease. If further assessment were needed, couldconsider HIDA scan. THIS IS AN ELECTRONICALLY VERIFIED FINAL REPORT 11/13/2024 10:12 AM - Electronically signed by Kostas Grove M.D. CH: MEME Report ID: [id number] Reading Location: [place] [address] Bogdan Zambrano MD IMG US PROCEDURES F inal Result * ABO/Rh (11/13/2024 10:06 AM CDT) ABO/Rh A Positive Blood 11/13/2024 10:0 6 AM CDT 11/13/2024 10:09 AM CDT Narrative [facility] ([place]) - 11/13/2024 10:50 AM CDT Has the patient had Daratumumab or Isatuximab in the past 6 months?->Unknown Bogdan Zambrano MD LAB BLOOD BANK TEST ORDERABLES Final Result Performing Organization Address City/[facility]/ZIP Co de Phone Number [facility] ([place]) [address] [place] [address] [place] [address] * Antibody screen (11/13/2024 10:06 AM CDT) Bryan, indirect, Gel Interpretation Negative ABSC Blood 11/13/2024 10:0 6 AM CDT 11/13/2024 10:09 AM CDT Narrative [facility] ([place]) - 11/13/2024 10:50 AM CDT Has the patient had Daratumumab or Isatuximab in the past 6 months?->Unknown Bogdan Zambrano MD LAB BLOOD BANK TEST ORDERABLES Final Result [facility] ([place]) 1 [facility] [place] [address] * (ABNORMAL) Ammonia (11/13/2024 9:07 AM CDT) Ammonia 56(H) <=50 mcmol/L Blood 11/13/2024 9:07 AM CDT 11/13/2024 9:13 AM CDT us Bogdan Zambrano MD LAB BLOOD ORDERABLE S Final Result [facility] ([place]) [address] [place] [address] [place] [address] * eGFR (11/13/2024 8:48 AM CDT) eGFR >90 >=60 mL/min/1. 73 m2 Comment: Interpretive Data Reference Interval Normal >/= 90 mL/min/1.73m2 Mildly decreased* 60 - 89 mL/min/1.73m2 Mildly to moderately decreased 45 - 59 mL/min/1.73m2 Moderately to severely decreased 30 - 44 mL/min/1.73m2 Severely decreased 15 - 29 mL/min/1.73m2 Kidney Failure < 15 mL/min/1.73m2 *Relative to young adult level Estimated glomerular filtration rate is determined by the 2020 CKD-EPI equation recommended by the National Kidney Foundation (A Unifying Approach to GFR Estimation: Recommendations of the NKF-ASK Task Force on Reassessing the Inclusion of Race in Diagnosing Kidney Disease, JASN 2020). The CKD-EPI equation should not be used for patients with unstable renal function and has not been validated in children and those over 70. Current interpretive data was last reviewed 2021. Blood 11/13/2024 8:48 AM CDT 11/13/2024 8:52 AM CDT us Bogdan Zambrano MD LAB BLOOD ORDERABLE S Final Result [facility] ([place]) 1 [facility] [place] [address] * Differential, auto (11/13/2024 8:48 AM CDT) Neutrophil abs 4.37 1.50 - 6.50 K/cumm Imm gran abs 0.02 0.00 - 0.10 K/cumm [facility] ([place]) Lymphocyte abs 2.51 0.80 - 3.30 K/cumm [facility] ([place]) Monocyte abs 0.55 0.20 - 0.80 K/cumm [facility] ([place]) Eosinophil abs 0.02 0.00 - 0.50 K/cumm [facility] ([place]) Basophil abs 0.05 0.00 - 0.10 K/cumm [facility] ([place]) Neutrophil pct 58.0 % [facility] ([place]) Comment: Interpretive Data Percent cell count reference ranges are not reported, since discordance with absolute values may lead to misinterpretation of CBC data. Current Interpretive Data was last revised on 2017. Imm gran pct 0.3 % [facility] ([place]) Comment: Interpretive Data Percent cell count reference ranges are not reported, since discordance with absolute values may lead to misinterpretation of CBC data. Current Interpretive Data was last revised on 2017. Lymphocyte pct 33.4 % [facility] ([place]) Comment: Interpretive Data Percent cell count reference ranges are not reported, since discordance with absolute values may lead to misinterpretation of CBC data. Current Interpretive Data was last revised on 2017. Monocyte pct 7.3 % [facility] ([place]) Comment: Interpretive Data Percent cell count reference ranges are not reported, since discordance with absolute values may lead to misinterpretation of CBC data. Current Interpretive Data was last revised on 2017. Eosinophil pct 0.3 % [facility] ([place]) Comment: Interpretive Data Percent cell count reference ranges are not reported, since discordance with absolute values may lead to misinterpretation of CBC data. Current Interpretive Data was last revised on 2017. Basophil pct 0.7 % [facility] ([place]) Comment: Interpretive Data Percent cell count reference ranges are not reported, since discordance with absolute values may lead to misinterpretation of CBC data. Current Interpretive Data was last revised on 2017. Blood 11/13/2024 8:48 AM CDT 11/13/2024 8:52 AM CDT us Bogdan Zambrano MD LAB BLOOD ORDERABLE S Final Result [facility] ([place]) 1 [facility] [place] [address] * (ABNORMAL) CBC with auto differential (11/13/2024 8:48 AM CDT) Pathologist [facility] [place] WBC 7.52 3.80 - 9.90 K/cumm Hgb 12.7(L) 13.0 - 17.5 g/dL [facility] ([place]) Hct 36.5(L) 38.9 - 50.3 % [facility] ([place]) Plt 218 150 - 400 K/cumm [facility] ([place]) MPV 8.3(L) 9.1 - 12.3 fL [facility] ([place]) RBC 4.16(L) 4.30 - 5.80 M/cumm [facility] ([place]) MCV 87.7 81.3 - 96.4 fL [facility] ([place]) MCH 30.5 27.1 - 33.3 pg [facility] ([place]) MCHC 34.8 32.3 - 35.7 g/dL [facility] ([place]) RDW CV 12.8 11.1 - 14.9 % [facility] ([place]) RDW SD 40.1 35.7 - 48.1 fL [facility] ([place]) NRBC abs 0.00 0.00 - 0.01 K/cumm [facility] ([place]) Blood 11/13/2024 8:48 AM CDT 11/13/2024 8:52 AM CDT us Bogdan Zambrano MD LAB BLOOD ORDERABLE S Final Result [facility] ([place]) 1 [facility] [place] [address] * (ABNORMAL) Protime-INR (11/13/2024 8:48 AM CDT) Pathologist [facility] PT 16.9(H) 9.7 - 13.0 sec [facility] ([place]) INR 1.55(H) 0.90 - 1.20 [facility] ([place]) Comment: Interpretive data Oral anticoagulant therapeutic ranges: Venous thromboembolism prophylaxis or treatment: 2.0-3.0 CARDIOLOGY Standard range: 2.0-3.0 High-intensity range: 2.5-3.5 Refer to indication-specific guidelines for appropriate target ranges for prosthetic heart valve replacement. Current interpretive data was last revised on 2019. Blood 11/13/2024 8:48 AM CDT 11/13/2024 8:52 AM CDT us Bogdan Zambrano MD LAB BLOOD ORDERABLE S Final Result [facility] ([place]) 1 [facility] [place] [address] * (ABNORMAL) Magnesium (11/13/2024 8:48 AM CDT) Magnesium 1.2(L) 1.4 - 2.5 mg/dL Blood 11/13/2024 8:48 AM CDT 11/13/2024 10:54 AM CDT us Bogdan Zambrano MD LAB BLOOD ORDERABLE S Final Result Performing Organization Address City/[facility]/ZIP Co de Phone Number [facility] ([place]) 1 [facility] [place] [address] * Lipase (11/13/2024 8:48 AM CDT) Lipase 41 10 - 99 Units/L Blood 11/13/2024 8:48 AM CDT 11/13/2024 8:52 AM CDT us Bogdan Zambrano MD LAB BLOOD ORDERABLE S Final Result [facility] ([place]) [address] [facility] [place] [address] * Acetaminophen level (11/13/2024 8:48 AM CDT) Acetaminophen <5 <=5 mcg/mL Comment: Markedly elevated levels of Acetaminophen and it's metabolites may lead to false low test results for cholesterol, HDL, triglycerides and uric acid with the manufacturers test methods used by our lab. Interpretive Data Significant hepatic injury may occur and treatment with n-acetyl cysteine is generally recommended if the acetaminophen level exceeds: 150 mcg/mL at 4 hours after ingestion 75 mcg/mL at 8 hours after ingestion 38 mcg/mL at 12 hours after ingestion 19 mcg/mL at 16 hours after ingestion Consult toxicology or poison control ([phone]) for unknown ingestion time. Current interpretive data was last revised 2023. Blood 11/13/2024 8:48 AM CDT 11/13/2024 9:00 AM CDT us Bogdan Zambrano MD LAB BLOOD ORDERABLE S Final Result [facility] ([place]) 1 [facility] Department [place] [address] * (ABNORMAL) Comprehensive metabolic panel (11/13/2024 8:48 AM CDT) Pathologist [facility] [place] Sodium 140 135 - 145 mmol/L Potassium, pl 3.3 3.3 - 4.9 mmol/L [facility] ([place]) Chloride 99 97 - 110 mmol/L [facility] ([place]) CO2 23 22 - 32 mmol/L [facility] ([place]) Anion gap 19(H) 2 - 15 mmol/L [facility] ([place]) BUN 5(L) 6 - 25 mg/dL [facility] ([place]) Creatinine 0.68(L) 0.80 - 1.30 mg/dL [facility] ([place]) Glucose 107 70 - 199 mg/dL [facility] ([place]) Comment: Interpretive Data Fasting glucose >/= 126 mg/dl is diagnostic for diabetes. Fasting is defined as no caloric intake for at least 8 hours. Fasting glucose between 100 mg/dl to 125 mg/dl is diagnostic of prediabetes. In a patient with classic symptoms of hyperglycemia or hyperglycemic crisis, a random glucose >/= 200 mg/dl is diagnostic for diabetes. In the absence of unequivocal hyperglycemia, results should be confirmed by repeat testing. The classification and Diagnosis of Diabetes Diabetes Care 2021; 46: S19-S40. Current interpretive data was last revised 2022. Calcium 8.6 8.5 - 10.3 mg/dL [facility] ([place]) Bilirubin, total 1.1 0.1 - 1.2 mg/dL [facility] ([place]) Protein, pl 7.9 6.5 - 8.5 g/dL [facility] ([place]) Albumin 3.9 3.5 - 5.0 g/dL [facility] ([place]) Alk phos 327(H) 40 - 130 Units/L [facility] ([place]) ALT 21 7 - 55 Units/L [facility] ([place]) AST 71(H) 10 - 50 Units/L [facility] ([place]) Blood 11/13/2024 8:48 AM CDT 11/13/2024 8:52 AM CDT us Bogdan Zambrano MD LAB BLOOD ORDERABLE S Final Result [facility] ([place]) 1 [facility] [place] [address] * CT Abdomen Pelvis W Contrast (10/30/2024 7:40 PM CDT) Anatomical Region Laterality Modality Body N/A Computed Tomogra phy 10/30/2024 7:50 PM CDT Narrative 10/30/2024 7:58 PM CDT EXAM DESCRIPTION: CT ABDOMEN PELVIS W CONTRAST REASON FOR STUDY: Abdominal pain, acute, nonlocalized Patient complains of abdominal swelling, bone pain, and yellowing of his skin and eyes for 2 weeks. Pt reports hx of cirrhosis. TECHNIQUE: CT scan of the abdomen and pelvis performed with intravenous and without oral contrast using helical scanning technique with dynamic intravenous contrast injection. Reconstructed coronal and sagittal MPR images reviewed. All images stored on PACS. Automated exposure control was used as a dose optimization technique for this examination. CONTRAST TYPE/DOSE: 75mL of IOVERSOL 350 MG IODINE/ML INTRAVENOUS SYRINGE injected via intravenous COMPARISON: 09/09/2024 FINDINGS: LOWER CHEST: No significant pulmonary abnormalities. No effusion. LIVER: The liver is normal in size. There is indeterminate heterogeneity of the parenchyma which is similar compared to the prior examination. No definite focal discrete lesion is seen. GALLBLADDER: The gallbladder is partially distended. Gallbladder wall edema is noted. No definite large or stone BILE DUCTS: No gross biliary ductal dilatation. SPLEEN: Borderline splenomegaly measuring 14 cm is unchanged. PANCREAS: The pancreas is normal in size. No significant peripancreatic stranding or main ductal dilatation ADRENALS: Normal. KIDNEYS/URINARY TRACT: The kidneys are normal in size. Symmetric in enhancement. Prominent collecting systems without overt hydronephrosis. Urinary bladder is distended without substantial thickening or stranding. GI: Colonic diverticulosis is seen without CT evidence of acute diverticulitis. Stool throughout the colon which appears nondilated. The appendix is partially obscured and appears to be nondilated. The small bowel is nondilated without evidence of a small-bowel obstruction. Indeterminate thickening of the visualized esophagus is seen. No substantial inflammatory fat stranding is seen to definitively suggest esophagitis. PERITONEUM: Trace free fluid is seen within the rectovesical space. This is similar compared to the prior. Trace perihepatic ascites is also noted. There is otherwise no significant ascites. No organized drainable fluid collection. No free air. Indeterminate periportal lymphadenopathy is redemonstrated. This is not substantially changed compared to the prior. For reference 2.5 x 1.7 cm lymph node, previously measuring 2.5 x 1.6 cm (36). Recommend close attention on follow-up imaging. RETROPERITONEUM: Subcentimeter retroperitoneal lymph nodes are noted. No inguinal lymphadenopathy is seen with subcentimeter lymph nodes noted. REPRODUCTIVE: No significant abnormality. VASCULATURE: The portal vein appears to be patent. The aorta is nonaneurysmal. MUSCULOSKELETAL: Partial fusion of L4-5 with degenerative sclerosis, unchanged. OTHER: No other abnormality. IMPRESSION: 1. Chronic heterogeneous liver parenchyma with no definite discrete lesion. Follow-up right upper quadrant ultrasound may be performed for further evaluation in this patient with reported chronic underlying liver disease. 2. Partially distended gallbladder with apparent gallbladder wall edema. This is likely due to the patient's chronic underlying liver disease. Recommend close attention on follow-up. 3. Grossly stable borderline splenomegaly with trace abdominal ascites suggestive of portal hypertension. 4. Grossly stable indeterminate periportal lymphadenopathy compared to 09/09/2024. This is likely reactive. Recommend close attention on follow-up. THIS IS AN ELECTRONICALLY VERIFIED FINAL REPORT 10/30/2024 7:58 PM - Electronically signed by Jean Fagan M.D. AG: AG Report ID: [id number] Reading Location: [id number] Procedure Note Jean Fagan MD - 10/30/2024 EXAM DESCRIPTION: CT ABDOMEN PELVIS W CONTRAST REASON FOR STUDY: Abdominal pain, acute, nonlocalized Patient complains of abdominal swelling, bone pain, and yellowing of hisskin and eyes for 2 weeks. Pt reports hx of cirrhosis. TECHNIQUE: CT scan of the abdomen and pelvis performed with intravenousand without oral contrast using helical scanning technique with dynamic intravenous contrast injection. Reconstructed coronal and sagittal MPRimages reviewed. All images stored on PACS. Automated exposure control was usedas a dose optimization technique for this examination. CONTRAST TYPE/DOSE: 75mL of IOVERSOL 350 MG IODINE/ML INTRAVENOUSSYRINGE injected via intravenous COMPARISON: 09/09/2024 FINDINGS: LOWER CHEST: No significant pulmonary abnormalities. No effusion. LIVER: The liver is normal in size. There is indeterminateheterogeneity of the parenchyma which is similar compared to the prior examination. No definite focal discrete lesion is seen. GALLBLADDER: The gallbladder is partially distended. Gallbladder walledema is noted. No definite large or stone BILE DUCTS: No gross biliary ductal dilatation. SPLEEN: Borderline splenomegaly measuring 14 cm is unchanged. PANCREAS: The pancreas is normal in size. No significant peripancreatic stranding or main ductal dilatation ADRENALS: Normal. KIDNEYS/URINARY TRACT: The kidneys are normal in size. Symmetric in enhancement. Prominent collecting systems without overt hydronephrosis. Urinary bladder is distended without substantial thickening or stranding. GI: Colonic diverticulosis is seen without CT evidence of acute diverticulitis. Stool throughout the colon which appears nondilated. The appendix is partially obscured and appears to be nondilated. The smallbowel is nondilated without evidence of a small-bowel obstruction.Indeterminate thickening of the visualized esophagus is seen. No substantialinflammatory fat stranding is seen to definitively suggest esophagitis. PERITONEUM: Trace free fluid is seen within the rectovesical space.This is similar compared to the prior. Trace perihepatic ascites is also noted. There is otherwise no significant ascites. No organized drainable fluid collection. No free air. Indeterminate periportal lymphadenopathy is redemonstrated. This is not substantially changed compared to the prior.For reference 2.5 x 1.7 cm lymph node, previously measuring 2.5 x 1.6 cm (36). Recommend close attention on follow-up imaging. RETROPERITONEUM: Subcentimeter retroperitoneal lymph nodes are noted.No inguinal lymphadenopathy is seen with subcentimeter lymph nodes noted. REPRODUCTIVE: No significant abnormality. VASCULATURE: The portal vein appears to be patent. The aorta is nonaneurysmal. MUSCULOSKELETAL: Partial fusion of L4-5 with degenerative sclerosis, unchanged. OTHER: No other abnormality. IMPRESSION: 1. Chronic heterogeneous liver parenchyma with no definite discretelesion. Follow-up right upper quadrant ultrasound may be performed for further evaluation in this patient with reported chronic underlying liver disease. 2. Partially distended gallbladder with apparent gallbladder wall edema. This is likely due to the patient's chronic underlying liver disease. Recommend close attention on follow-up. 3. Grossly stable borderline splenomegaly with trace abdominal ascites suggestive of portal hypertension. 4. Grossly stable indeterminate periportal lymphadenopathy compared to 09/09/2024. This is likely reactive. Recommend close attention onfollow-up. THIS IS AN ELECTRONICALLY VERIFIED FINAL REPORT 10/30/2024 7:58 PM - Electronically signed by Jean Fagan M.D. AG: LALITA Report ID: [id number] Reading Location: [place] [address] Bartolome Marquez MD [facility] CT PROCEDURES Final Result * (ABNORMAL) Drugs of Abuse Screen, Urine with Reflex Confirmation (10/30/2024 7:38 PM CDT) Amphetamine, ur Not Detected CutOff 500ng/mL Comment: Interpretive Data - Amphetamines: Samples containing greater than 500 ng/mL d-methamphetamine or other cross-reacting amphetamine compounds are reported as positive. Amphetamine immunoassays are subject to significant false positive rates due to cross-reactivity of non-amphetamine drugs. Confirmatory testing required for definitive results. Current Interpretive Data was last reviewed 2023. Barbiturates, ur Not Detected CutOff 200ng/mL [facility] ([place]) Comment: Interpretive Data - Barbiturates: Samples containing greater than 200 ng/mL secobarbital or other cross-reacting barbiturate compounds are reported as positive. False positive and false negative results are possible. Confirmatory testing required for definitive results. Current Interpretive Data was last reviewed 2023. Benzodiazepines, ur Not Detected CutOff 100ng/mL [facility] ([place]) Comment: Interpretive Data - Benzodiazepines: Samples containing greater than 100 ng/mL nordiazepam or other cross-reacting compounds are reported as positive. False positive and false negative results are possible. Confirmatory testing required for definitive results. Current Interpretive Data was last reviewed 2023. Cannabinoids, ur Screen Positive, presumptive (A) CutOff 50 ng/mL [facility] ([place]) Comment: Interpretive Data - Cannabinoids: Samples containing greater than 50 ng/mL delta-9 THC -COOH or other cross- reacting compounds are reported as positive. False positive and false negative results are possible. Confirmatory testing required for definitive results. Current Interpretive Data was last reviewed 2023. Cocaine, ur Not Detected CutOff 150ng/mL [facility] ([place]) Comment: Interpretive Data - Cocaine: Samples containing greater than 150 ng/mL benzoylecgonine or other cross- reacting compounds are reported as positive. False positive and false negative results are possible. Confirmatory testing required for definitive results. Current Interpretive Data was last reviewed 2023. Fentanyl, Ur Not Detected CutOff 5 ng/mL [facility] ([place]) Comment: Interpretive Data - Fentanyl: Samples containing greater than 5 ng/mL norfentanyl, fentanyl, or other cross-reacting fentanyl compounds are reported as positive. False positive and false negative results are possible. Confirmatory testing required for definitive results. Current Interpretive Data was last reviewed 2023. Methadone, ur Not Detected CutOff 300ng/mL [facility] ([place]) Comment: Interpretive Data - Methadone: Samples containing greater than 300 ng/mL d,l-methadone or other cross-reacting compounds are reported as positive. False positive and false negative results are possible. Confirmatory testing required for definitive results. Current Interpretive Data was last reviewed 2023. Opiates, ur Not Detected CutOff 300ng/mL [facility] ([place]) Comment: Interpretive Data - Opiates: Samples containing greater than 300 ng/mL morphine or other cross-reacting compounds are reported as positive. False positive and false negative results are possible. Confirmatory testing required for definitive results. Current Interpretive Data was last reviewed 2023. Oxycodone, ur Not Detected CutOff 100ng/mL [facility] ([place]) Comment: Interpretive Data - Oxycodone: Samples containing greater than 100 ng/mL oxycodone or other cross-reacting compounds are reported as positive. False positive and false negative results are possible. Confirmatory testing required for definitive results. Current Interpretive Data was last reviewed 2023. Phencyclidine, ur Not Detected CutOff 25 ng/mL [facility] ([place]) Comment: Interpretive Data - Phencyclidine: Samples containing greater than 25 ng/mL phencyclidine or other cross-reacting compounds are reported as positive. False positive and false negative results are possible. Confirmatory testing required for definitive results. Current Interpretive Data was last reviewed 2023. Urine Creatinine 131 mg/dL [facility] ([place]) Comment: Interpretive Data Urine Creatinine: < 10 mg/dL is extremely dilute = or > 10 but < 20 mg/dL is dilute = or > 20 mg/dL is normal Current Interpretive Data was last revised on 2017. Urine 10/30/2024 7:38 PM CDT 10/30/2024 7:41 PM CDT Narrative [facility] ([place]) - 10/30/2024 8:48 PM CDT Drug of Abuse screening is performed by immunoassay for medical purposes only. This is not to be used for Pain Management purposes. If Detected, confirmation testing will be performed for Amphetamines, Cocaine, Fentanyl, Methadone, Opiates, Oxycodone or Phencyclidine. us Bartolome Marquez MD LAB URINE ORDERABLES Final Resul t [facility] ([place]) [facility] [place] [address] * eGFR (10/30/2024 7:15 PM CDT) eGFR >90 >=60 mL/min/1. 73 m2 Comment: Interpretive Data Reference Interval Normal >/= 90 mL/min/1.73m2 Mildly decreased* 60 - 89 mL/min/1.73m2 Mildly to moderately decreased 45 - 59 mL/min/1.73m2 Moderately to severely decreased 30 - 44 mL/min/1.73m2 Severely decreased 15 - 29 mL/min/1.73m2 Kidney Failure < 15 mL/min/1.73m2 *Relative to young adult level Estimated glomerular filtration rate is determined by the 2020 CKD-EPI equation recommended by the National Kidney Foundation (A Unifying Approach to GFR Estimation: Recommendations of the NKF-ASK Task Force on Reassessing the Inclusion of Race in Diagnosing Kidney Disease, JASN 2020). The CKD-EPI equation should not be used for patients with unstable renal function and has not been validated in children and those over 70. Current interpretive data was last reviewed 2021. Blood 10/30/2024 7:15 PM CDT 10/30/2024 7:19 PM CDT Yaakov Pittman MD LAB BLOOD ORDERABLES Final R esult Performing Organization Address City/[facility]/ZIP Co de Phone Number [facility] ([place]) 1 [facility] [place] [address] * (ABNORMAL) Creatine kinase (CK), total (10/30/2024 7:15 PM CDT) CK 14(L) 40 - 300 Units/L Blood 10/30/2024 7:15 PM CDT 10/30/2024 7:19 PM CDT aYakov Pittman MD LAB BLOOD ORDERABLES Final R esult [facility] ([place]) [address] [facility] [place] [address] * Ethanol (10/30/2024 7:15 PM CDT) Ethanol <10 <=10 mg/dL Comment: Interpretive Data Legal limit of intoxication > or = 80 mg/dL Levels > or = 400 mg/dL are potentially TOXIC. Current interpretive data was last revised on 2018. Blood 10/30/2024 7:15 PM CDT 10/30/2024 7:22 PM CDT Narrative [facility] ([place]) - 10/30/2024 7:42 PM CDT Stefania assured us the site was cleaned with iodine us Bartolome Marquez MD LAB BLOOD ORDERABLES Final Resul t [facility] ([place]) 1 [facility] Department [place] [address] * (ABNORMAL) Comprehensive metabolic panel (10/30/2024 7:15 PM CDT) Sodium 133(L) 135 - 145 mmol/L Potassium, pl 3.5 3.3 - 4.9 mmol/L [facility] ([place]) Chloride 99 97 - 110 mmol/L [facility] ([place]) CO2 23 22 - 32 mmol/L [facility] ([place]) Anion gap 12 2 - 15 mmol/L [facility] ([place]) BUN 7 6 - 25 mg/dL [facility] ([place]) Creatinine 0.62(L) 0.80 - 1.30 mg/dL [facility] ([place]) Glucose 127 70 - 199 mg/dL [facility] ([place]) Comment: Interpretive Data Fasting glucose >/= 126 mg/dl is diagnostic for diabetes. Fasting is defined as no caloric intake for at least 8 hours. Fasting glucose between 100 mg/dl to 125 mg/dl is diagnostic of prediabetes. In a patient with classic symptoms of hyperglycemia or hyperglycemic crisis, a random glucose >/= 200 mg/dl is diagnostic for diabetes. In the absence of unequivocal hyperglycemia, results should be confirmed by repeat testing. The classification and Diagnosis of Diabetes Diabetes Care 2022; 46: S19-S40. Current interpretive data was last revised 2022. Calcium 8.9 8.5 - 10.3 mg/dL [facility] ([place]) Bilirubin, total 1.0 0.1 - 1.2 mg/dL [facility] ([place]) Protein, pl 6.8 6.5 - 8.5 g/dL [facility] ([place]) Albumin 3.4(L) 3.5 - 5.0 g/dL [facility] ([place]) Alk phos 181(H) 40 - 130 Units/L [facility] ([place]) ALT 12 7 - 55 Units/L [facility] ([place]) AST 20 10 - 50 Units/L [facility] ([place]) Blood 10/30/2024 7:15 PM CDT 10/30/2024 7:19 PM CDT us Yaakov Pittman MD LAB BLOOD ORDERABLES Final R esult [facility] ([place] 1 [facility] Department [place] [address] * Urinalysis reflex to microscopic and culture Urine (10/30/2024 1:45 PM CDT) Color, ur Yellow Yellow Clarity, ur Clear Clear [facility] ([place]) Specific gravity, ur 1.017 1.003 - 1.030 [facility] ([place]) pH, urine 6.0 [facility] ([place]) Comment: Interpretive Data U rine pH is affected by diet, medications, systemic acid-base disturbances, and renal tubular function. pH may affect urinary stone formation. For example, urine pH below 6.0 may help reduce the tendency for calcium phosphate stones and pH greater than 6.0 may reduce the tendency for uric acid stone formation. Source: [facility] Current Interpretive Data was last revised on 2017 Protein, ur ql Negative Negative [facility] ([place]) Glucose, ur ql Negative Negative [facility] ([place]) Ketones, ur Negative Negative [facility] ([place]) Bilirubin, ur Negative Negative [facility] ([place]) Blood, ur Negative Negative [facility] ([place]) Urobilinogen, ur <2.0 <2.0 mg/dL [facility] ([place]) Nitrite, ur Negative Negative [facility] ([place]) Leukocyte esterase, ur Negative Negative [facility] ([place]) UA reflex comment Reflex conditions for microscopic UA and culture not met. [facility] ([place]) Urine 10/30/2024 1:45 PM CDT 10/30/2024 1:49 PM CDT Yaakov Pittman MD LAB MICROBIOLOGY - GENERAL O RDERABLES Final Result Performing Organization Address [facility] Co de Phone Number [facility] ([place]) 1 [facility] [place] [address] * eGFR (10/30/2024 1:38 PM CDT) eGFR >90 >=60 mL/min/1. 73 m2 Comment: Interpretive Data Reference Interval Normal >/= 90 mL/min/1.73m2 Mildly decreased* 60 - 89 mL/min/1.73m2 Mildly to moderately decreased 45 - 59 mL/min/1.73m2 Moderately to severely decreased 30 - 44 mL/min/1.73m2 Severely decreased 15 - 29 mL/min/1.73m2 Kidney Failure < 15 mL/min/1.73m2 *Relative to young adult level Estimated glomerular filtration rate is determined by the 2020 CKD-EPI equation recommended by the National Kidney Foundation (A Unifying Approach to GFR Estimation: Recommendations of the NKF-ASK Task Force on Reassessing the Inclusion of Race in Diagnosing Kidney Disease, JASN 2020). The CKD-EPI equation should not be used for patients with unstable renal function and has not been validated in children and those over 70. Current interpretive data was last reviewed 2021. Blood 10/30/2024 1:38 PM CDT 10/30/2024 1:40 PM CDT Yaakov Pittman MD LAB BLOOD ORDERABLES Final R esult Performing Organization Address City/[facility]/ZIP Co de Phone Number [facility] ([place]) 1 [facility] Department [place] [address] * Differential, auto (10/30/2024 1:38 PM CDT) Neutrophil abs 3.97 1.50 - 6.50 K/cumm Imm gran abs 0.09 0.00 - 0.10 K/cumm [facility] ([place]) Lymphocyte abs 2.02 0.80 - 3.30 K/cumm [facility] ([place]) Monocyte abs 0.76 0.20 - 0.80 K/cumm [facility] ([place]) Eosinophil abs 0.06 0.00 - 0.50 K/cumm [facility] ([place]) Basophil abs 0.03 0.00 - 0.10 K/cumm [facility] ([place]) Neutrophil pct 57.3 % [facility] ([place]) Comment: Interpretive Data Percent cell count reference ranges are not reported, since discordance with absolute values may lead to misinterpretation of CBC data. Current Interpretive Data was last revised on 2017. Imm gran pct 1.3 % [facility] ([place]) Comment: Interpretive Data Percent cell count reference ranges are not reported, since discordance with absolute values may lead to misinterpretation of CBC data. Current Interpretive Data was last revised on 2017. Lymphocyte pct 29.1 % [facility] ([place]) Comment: Interpretive Data Percent cell count reference ranges are not reported, since discordance with absolute values may lead to misinterpretation of CBC data. Current Interpretive Data was last revised on 2017. Monocyte pct 11.0 % [facility] ([place]) Comment: Interpretive Data Percent cell count reference ranges are not reported, since discordance with absolute values may lead to misinterpretation of CBC data. Current Interpretive Data was last revised on 2017. Eosinophil pct 0.9 % [facility] ([place]) Comment: Interpretive Data Percent cell count reference ranges are not reported, since discordance with absolute values may lead to misinterpretation of CBC data. Current Interpretive Data was last revised on 2017. Basophil pct 0.4 % [facility] ([place]) Comment: Interpretive Data Percent cell count reference ranges are not reported, since discordance with absolute values may lead to misinterpretation of CBC data. Current Interpretive Data was last revised on 2017. Blood 10/30/2024 1:38 PM CDT 10/30/2024 1:40 PM CDT Yaakov Pittman MD LAB BLOOD ORDERABLES Final R esult [facility] ([place]) 1 [facility] [place] [address] * (ABNORMAL) CBC with auto differential (10/30/2024 1:38 PM CDT) WBC 6.93 3.80 - 9.90 K/cumm Hgb 10.4(L) 13.0 - 17.5 g/dL [facility] ([place]) Hct 30.4(L) 38.9 - 50.3 % [facility] ([place]) Plt 144(L) 150 - 400 K/cumm [facility] ([place]) MPV 9.8 9.1 - 12.3 fL [facility] ([place]) RBC 3.35(L) 4.30 - 5.80 M/cumm [facility] ([place]) MCV 90.7 81.3 - 96.4 fL [facility] ([place]) MCH 31.0 27.1 - 33.3 pg [facility] ([place]) MCHC 34.2 32.3 - 35.7 g/dL [facility] ([place]) RDW CV 12.1 11.1 - 14.9 % [facility] ([place]) RDW SD 40.2 35.7 - 48.1 fL [facility] ([place]) NRBC abs 0.00 0.00 - 0.01 K/cumm [facility] ([place]) Blood Venous blood specimen / Unknown 10/30/2024 1:38 PM CDT 10/30/2024 1:40 PM CDT Yaakov Pittman MD LAB BLOOD ORDERABLES Final R esult Performing Organization Address City/[facility]/ZIP Co de Phone Number [facility] ([place]) 1 [facility] Department [place] [address] * Lipase (10/30/2024 1:38 PM CDT) Lipase 42 10 - 99 Units/L Blood Venous blood specimen / Unknown 10/30/2024 1:38 PM CDT 10/30/2024 1:40 PM CDT Yaakov Pittman MD LAB BLOOD ORDERABLES Final R esult [facility] ([place]) 1 [facility] Department [place] [address] * (ABNORMAL) Comprehensive metabolic panel (10/30/2024 1:38 PM CDT) Sodium 138 135 - 145 mmol/L Potassium, pl 4.3 3.3 - 4.9 mmol/L [facility] ([place]) Chloride 103 97 - 110 mmol/L [facility] ([place]) CO2 23 22 - 32 mmol/L [facility] ([place]) Anion gap 12 2 - 15 mmol/L [facility] ([place]) BUN 7 6 - 25 mg/dL [facility] ([place]) Creatinine 0.67(L) 0.80 - 1.30 mg/dL [facility] ([place]) Glucose 101 70 - 199 mg/dL [facility] ([place]) Comment: Interpretive Data Fasting glucose >/= 126 mg/dl is diagnostic for diabetes. Fasting is defined as no caloric intake for at least 8 hours. Fasting glucose between 100 mg/dl to 125 mg/dl is diagnostic of prediabetes. In a patient with classic symptoms of hyperglycemia or hyperglycemic crisis, a random glucose >/= 200 mg/dl is diagnostic for diabetes. In the absence of unequivocal hyperglycemia, results should be confirmed by repeat testing. The classification and Diagnosis of Diabetes Diabetes Care 2021; 46: S19-S40. Current interpretive data was last revised 2022. Calcium 9.3 8.5 - 10.3 mg/dL [facility] ([place]) Bilirubin, total 1.0 0.1 - 1.2 mg/dL [facility] ([place]) Protein, pl 7.0 6.5 - 8.5 g/dL [facility] ([place]) Albumin 3.5 3.5 - 5.0 g/dL [facility] ([place]) Alk phos 183(H) 40 - 130 Units/L [facility] ([place]) ALT 12 7 - 55 Units/L [facility] ([place]) AST 26 10 - 50 Units/L [facility] ([place]) Comment:Slightly Hemolyzed S pecimen Blood 10/30/2024 1:38 PM CDT 10/30/2024 1:40 PM CDT us Yaakov Pittman MD LAB BLOOD ORDERABLES Final R esult [facility] ([place]) 1 [facility] [place] [address] * NM Hepatobiliary Imaging W GBEF (10/17/2024 2:07 PM CDT) Anatomical Region Laterality Modality Body N/A Nuclear Medicine 10/17/2024 2:22 PM CDT Narrative 10/17/2024 2:23 PM CDT EXAM DESCRIPTION: NM HEPATOBILIARY IMAGING W PHARMACEUTICAL INTERVENTION RADIOPHARMACEUTICAL: 5.1 mCi Tc-99m mebrofenin via a left antecubital IV site and 8 oz Ensure Plus or equivalent P.O. REASON FOR STUDY: Acute alcoholic hepatitis is improving. Continues to have right upper quadrant pain worse after eating. Evaluate for gallbladder dysfunction. TECHNIQUE: Following the intravenous administration of the radiopharmaceutical, sequential abdominal images were obtained. COMPARISON: CT chest abdomen pelvis 09/09/2024 FINDINGS: There is prompt, homogenous tracer localization throughout the liver. There is normal visualization of the intrahepatic ducts, common bile duct, and gallbladder. There is normal biliary to bowel transit. Following the oral administration of Ensure Plus or equivalent, the gallbladder ejection fraction was calculated and was 90% (normal: greater than 40%, equivocal: 30-40%, and abnormal: less than 30%). IMPRESSION: No scintigraphic evidence of cystic duct obstruction. Normal contractile response of the gallbladder to fatty meal stimulation. THIS IS AN ELECTRONICALLY VERIFIED FINAL REPORT 10/17/2024 2:23 PM - Electronically signed by Lila Mitchell M.D. FT: FT Report ID: [id number] Reading Location: [place] [address] Procedure Note Lila Howe MD - 10/17/2024 EXAM DESCRIPTION: NM HEPATOBILIARY IMAGING W PHARMACEUTICAL INTERVENTION RADIOPHARMACEUTICAL: 5.1 mCi Tc-99m mebrofenin via a left antecubitalIV site and 8 oz Ensure Plus or equivalent P.O. REASON FOR STUDY: Acute alcoholic hepatitis is improving. Continues tohave right upper quadrant pain worse after eating. Evaluate for gallbladder dysfunction. TECHNIQUE: Following the intravenous administration of the radiopharmaceutical, sequential abdominal images were obtained. COMPARISON: CT chest abdomen pelvis 09/09/2024 FINDINGS: There is prompt, homogenous tracer localization throughout the liver.There is normal visualization of the intrahepatic ducts, common bile duct, and gallbladder. There is normal biliary to bowel transit. Following the oral administration of Ensure Plus or equivalent, the gallbladder ejection fraction was calculated and was 90% (normal:greater than 40%, equivocal: 30-40%, and abnormal: less than 30%). IMPRESSION: No scintigraphic evidence of cystic duct obstruction. Normal contractile response of the gallbladder to fatty mealstimulation. THIS IS AN ELECTRONICALLY VERIFIED FINAL REPORT 10/17/2024 2:23 PM - Electronically signed by Lila Mitchell M.D. FT: FT Report ID: [id number] Reading Location: [place] [address] us Steven Reyes [employer] TE[employer]IC[employer] IMG NM PROCEDURES F inal Result * POC Influenza A/B, COVID-19 antigen (10/09/2024 2:50 PM CDT) Influenza A Ag, POC Negative Negative [facility] Influenza B Ag, POC Negative Negative [facility] COVID-19 Ag POC Presumptive Negative Presumptive Negative, Invalid [facility] Nasal 10/09/2024 2:50 PM CDT us Berhane Soares MD POINT OF CARE TEST ORDERABLE S Final Result [facility] 2 [facility] [address] [place] [id number] * (ABNORMAL) Fibro Test-Acti Test (10/07/2024 8:59 AM CDT) FibroTest Score 0.83 [facility] FibroTest Stage F4 [facility] ([place]) FibroTest Interpretation severe fibrosis [facility] ([place]) Comment: FibroTest estimates liver fibrosis FibroTest Score Stage Interpretation 0.00-0.21 F0 no fibrosis 0.21-0.27 F0-F1 no fibrosis 0.27-0.31 F1 minimal fibrosis 0.31-0.48 F1-F2 minimal fibrosis 0.48-0.58 F2 moderate fibrosis 0.58-0.72 F3 advanced fibrosis 0.72-0.74 F3-F4 advanced fibrosis 0.74-1.00 F4 severe fibrosis (Cirrhosis) ActiTest Score 0.58 [facility] ([place]) ActiTest Grade A2 [facility] ([place]) ActiTest Interpretation SEE BELOW [facility] ([place]) Comment: RESULT: significant activity ActiTest estimates necroinflammatory activity ActiTest Score Grade Interpretation 0.00-0.17 A0 no activity 0.17-0.29 A0-A1 no activity 0.29-0.36 A1 minimal activity 0.36-0.52 A1-A2 minimal activity 0.52-0.60 A2 significant activity 0.60-0.62 A2-A3 significant activity 0.62-1.00 A3 severe activity FibroTest-ActiTest Comment See Comment [facility] ([place]) Comment: The reliability of results is dependent on compliance with the preanalytical and analytical conditions recommended by [employer]. The tests have to be deferred for: acute hemolysis, acute hepatitis, acute inflammation, extra hepatic cholestasis. The advice of a specialist should be sought for interpretation in chronic hemolysis and Gilbert's syndrome. The test interpretation is not validated in liver transplant patients. Isolated extreme values of one of the components should lead to caution in interpreting the results. In case of discordance between a biopsy result and a test, it is recommended to seek advice of a specialist. The causes of these discordances could be due to a flaw of the test or to a flaw in the biopsy: i.e. a liver biopsy has a 33% variability rate for one fibrosis stage. FibroTest is interpretable for chronic hepatitis B and C, alcoholic and non alcoholic steatosis. ActiTest is interpretable for chronic hepatitis B and C. ADDITIONAL INFORMATION This test was developed and its performance characteristics determined by [facility] in a manner consistent with CLIA requirements. This test has not been cleared or approved by the U.S. Food and Drug Administration. [facility]iso Serial Number [id number] [facility] ([place]) APOLIPOPROTEIN A1 82(L) >=120 mg/dL [facility] ([place]) Muazi-1-Ejiblrmuqqcuu, Ser 210 100 - 280 mg/dL [facility] ([place]) Haptoglobin, S 113 30 - 200 mg/dL [facility] ([place]) Alanine Aminotransferase (ALT), S 64(H) 7 - 55 Units/L [facility] ([place]) Gamma Glutamyltransferase (GGT), S 479(H) 8 - 61 Units/L [facility] ([place]) Bilirubin, Total, S 1.9(H) 0.0 - 1.2 mg/dL [facility] ([place]) Comment: Test Performed by: [facility] [address] [place] [address] Business Analytics Analyst: Andrei Strong Ph.D.; CLIA# [id number] Test Performed by: [facility] [address] [place] [address] Business Analytics Analyst: Andrei Strong Ph.D.; CLIA# [id number] Blood 10/07/2024 8:59 AM CDT 10/07/2024 10:35 AM CDT Steven Reyes LANDFILL GAS TECHNICIAN LAB BLOOD ORDERABLE S Final Result NICOLE [facility] ([place]) 1 [facility] Department [place] [address] [facility] * (ABNORMAL) Differential, auto (10/07/2024 8:59 AM CDT) Neutrophil abs 4.9 1.5 - 6.5 K/cumm Imm gran abs 0.3(H) 0.0 - 0.1 K/cumm [facility] ([place]) Lymphocyte abs 1.5 0.8 - 3.3 K/cumm [facility] ([place]) Monocyte abs 0.5 0.2 - 0.8 K/cumm [facility] ([place]) Eosinophil abs 0.0 0.0 - 0.5 K/cumm [facility] ([place]) Basophil abs 0.0 0.0 - 0.1 K/cumm [facility] ([place]) Neutrophil pct 68.3 % [facility] ([place]) Comment: Interpretive Data Percent cell count reference ranges are not reported, since discordance with absolute values may lead to misinterpretation of CBC data. Current Interpretive Data was last revised on 2017. Imm gran pct 3.5 % [facility] ([place]) Comment: Interpretive Data Percent cell count reference ranges are not reported, since discordance with absolute values may lead to misinterpretation of CBC data. Current Interpretive Data was last revised on 2017. Lymphocyte pct 20.5 % [facility] ([place]) Comment: Interpretive Data Percent cell count reference ranges are not reported, since discordance with absolute values may lead to misinterpretation of CBC data. Current Interpretive Data was last revised on 2017. Monocyte pct 6.7 % [facility] ([place]) Comment: Interpretive Data Percent cell count reference ranges are not reported, since discordance with absolute values may lead to misinterpretation of CBC data. Current Interpretive Data was last revised on 2017. Eosinophil pct 0.4 % [facility] ([place]) Comment: Interpretive Data Percent cell count reference ranges are not reported, since discordance with absolute values may lead to misinterpretation of CBC data. Current Interpretive Data was last revised on 2017. Basophil pct 0.6 % [facility] ([place]) Comment: Interpretive Data Percent cell count reference ranges are not reported, since discordance with absolute values may lead to misinterpretation of CBC data. Current Interpretive Data was last revised on 2017. Blood 10/07/2024 8:59 AM CDT 10/07/2024 10:35 AM CDT Steven Reyes LANDFILL GAS TECHNICIAN LAB BLOOD ORDERABLE S Final Result [facility] ([place]) 1 [facility] Department [place] [address] * (ABNORMAL) CBC with auto differential (10/07/2024 8:59 AM CDT) WBC 7.2 3.8 - 9.9 K/cumm Hgb 11.3(L) 13.0 - 17.5 g/dL [facility] ([place]) Hct 34.4(L) 38.9 - 50.3 % [facility] ([place]) Plt 149(L) 150 - 400 K/cumm [facility] ([place]) MPV 10.9 9.1 - 12.3 fL [facility] ([place]) RBC 3.41(L) 4.30 - 5.80 M/cumm [facility] ([place]) MCV 100.9(H) 81.3 - 96.4 fL [facility] ([place]) MCH 33.1 27.1 - 33.3 pg [facility] ([place]) MCHC 32.8 32.3 - 35.7 g/dL [facility] ([place]) RDW CV 12.7 11.1 - 14.9 % [facility] ([place]) RDW SD 47.1 35.7 - 48.1 fL [facility] ([place]) NRBC abs 0.00 0.00 - 0.01 K/cumm [facility] ([place]) Blood 10/07/2024 8:59 AM CDT 10/07/2024 10:35 AM CDT Steven [facility] LANDFILL GAS TECHNICIAN LAB BLOOD ORDERABLE S Final Result Performing Organization Address City/[facility] Co de Phone Number NICOLE [facility] ([place]) 1 [facility] [place] [address] * [id number], Tumor Marker (10/07/2024 8:59 AM CDT) alpha Fetoprotein 3.0 <=8.3 ng/mL Comment: Interpretive Data The Calixto AFP assay procedure was used. Results from different manufacturers or methods may not be comparable. Serial testing should be performed using the same method. 0-1 month. AFP concentrations may reach or exceed 100,000 ng/mL after depending on gestational age and weight. 1-3 months 50 1000 ng/ml 3-6 months 10 500 ng/ml 6-12 months 3.0 100 ng/ml >1 year 0.0 8.3 ng/ml References Christy Y. et al. J. Ped Surg 1978;13:155-156 Tawana Wooten. et al. Clin Chem Lab Med 2018;57:783-797 Ekaterina Bustillo et al. Clin Chem 2014;2553-1991. Current interpretive data was last revised 2022. Testing performed by: [facility], [address] [place] [address] Blood 10/07/2024 8:59 AM CDT 10/07/2024 4:06 PM CDT [facility] LANDFILL GAS TECHNICIAN LAB BLOOD ORDERABLE S Final Result NICOLE [facility] ([place]) 1 [facility] [place] [address] * (ABNORMAL) Hepatic function panel (10/07/2024 8:59 AM CDT) Bilirubin, total 1.9(H) 0.1 - 1.2 mg/dL Bilirubin, direct 1.3(H) 0.1 - 0.3 mg/dL [facility] ([place]) Protein, pl 6.6 6.5 - 8.5 g/dL [facility] ([place]) Albumin 3.4(L) 3.5 - 5.0 g/dL [facility] ([place]) Alk phos 260(H) 40 - 130 Units/L [facility] ([place]) ALT 63(H) 7 - 55 Units/L [facility] ([place]) AST 85(H) 10 - 50 Units/L [facility] ([place]) Blood 10/07/2024 8:59 AM CDT 10/07/2024 10:35 AM CDT Steven Reyes LANDFILL GAS TECHNICIAN LAB BLOOD ORDERABLE S Final Result [facility] ([place]) 1 [facility] Department [place] [address] * eGFR (09/12/2024 7:20 AM ARBORICULTURE INSTRUCTOR) eGFR >90 >=60 mL/min/1. 73 m2 Comment: Interpretive Data Reference Interval Normal >/= 90 mL/min/1.73m2 Mildly decreased* 60 - 89 mL/min/1.73m2 Mildly to moderately decreased 45 - 59 mL/min/1.73m2 Moderately to severely decreased 30 - 44 mL/min/1.73m2 Severely decreased 15 - 29 mL/min/1.73m2 Kidney Failure < 15 mL/min/1.73m2 *Relative to young adult level Estimated glomerular filtration rate is determined by the 2020 CKD-EPI equation recommended by the National Kidney Foundation (A Unifying Approach to GFR Estimation: Recommendations of the NKF-ASK Task Force on Reassessing the Inclusion of Race in Diagnosing Kidney Disease, JASN 2020). The CKD-EPI equation should not be used for patients with unstable renal function and has not been validated in children and those over 70. Current interpretive data was last reviewed 2021. Blood 09/12/2024 7:20 AM ARBORICULTURE INSTRUCTOR 09/12/2024 7:33 AM ARBORICULTURE INSTRUCTOR us Julieta Reddy MD LAB BLOOD ORDERABLES Final Result [facility] ([place]) 1 [facility] Department [place] [address] * (ABNORMAL) CBC with auto differential (09/12/2024 7:20 AM ARBORICULTURE INSTRUCTOR) WBC 12.1(H) 3.8 - 9.9 K/cumm Hgb 9.4(L) 13.0 - 17.5 g/dL [facility] ([place]) Hct 27.8(L) 38.9 - 50.3 % [facility] ([place]) Plt 146(L) 150 - 400 K/cumm [facility] ([place]) MPV 11.4 9.1 - 12.3 fL [facility] ([place]) RBC 2.72(L) 4.30 - 5.80 M/cumm [facility] ([place]) MCV 102.2(H) 81.3 - 96.4 fL [facility] ([place]) MCH 34.6(H) 27.1 - 33.3 pg [facility] ([place]) MCHC 33.8 32.3 - 35.7 g/dL [facility] ([place]) RDW CV 12.9 11.1 - 14.9 % [facility] ([place]) RDW SD 47.9 35.7 - 48.1 fL [facility] ([place]) NRBC abs 0.00 0.00 - 0.01 K/cumm [facility] ([place]) Blood 09/12/2024 7:20 AM ARBORICULTURE INSTRUCTOR 09/12/2024 7:33 AM ARBORICULTURE INSTRUCTOR Julieta Reddy MD LAB BLOOD ORDERABLES Final Result [facility] ([place]) 1 [facility] Department [place] [address] * Zinc (09/12/2024 7:20 AM ARBORICULTURE INSTRUCTOR) Pathologist [facility] Zinc 84 60 - 106 mcg/dL [facility] Comment: ADDITIONAL INFORMATION This test was developed and its performance characteristics determined by [facility] in a manner consistent with CLIA requirements. This test has not been cleared or approved by the U.S. Food and Drug Administration. Test Performed by: [facility] [address] [place] [address] Business Analytics Analyst: Andrei Strong Ph.D.; CLIA# [id number] Blood 09/12/2024 7:20 AM ARBORICULTURE INSTRUCTOR 09/12/2024 7:34 AM ARBORICULTURE INSTRUCTOR Julieta Reddy MD LAB BLOOD ORDERABLES Final Result NICOLE [facility] ([place]) 1 [facility] [place] [address] [facility] * (ABNORMAL) Manual Differential (09/12/2024 7:20 AM ARBORICULTURE INSTRUCTOR) [facility] Differential Manual Cells Counted 100 [facility] ([place]) Neutrophil abs 8.5(H) 1.5 - 6.5 K/cumm [facility] ([place]) Lymphocyte abs 2.4 0.8 - 3.3 K/cumm [facility] ([place]) Monocyte abs 1.2(H) 0.2 - 0.8 K/cumm [facility] ([place]) Neutrophil pct 69.0 % [facility] ([place]) Comment: Interpretive Data Percent cell count reference ranges are not reported, since discordance with absolute values may lead to misinterpretation of CBC data. Current Interpretive Data was last revised on 2017. Lymphocyte pct 19.0 % [facility] ([place]) Comment: Interpretive Data Percent cell count reference ranges are not reported, since discordance with absolute values may lead to misinterpretation of CBC data. Current Interpretive Data was last revised on 2017. Monocyte pct 10.0 % [facility] ([place]) Comment: Interpretive Data Percent cell count reference ranges are not reported, since discordance with absolute values may lead to misinterpretation of CBC data. Current Interpretive Data was last revised on 2017. Band Neutrophil pct 1.0 0.0 - 5.0 % [facility] ([place]) Variant lymph pct 1.0(H) 0.0 - 0.0 % [facility] ([place]) RBC morphology Consistent with RBC Indicies [facility] ([place]) Platelet estimate Automated Count Confirmed [facility] ([place]) Blood 09/12/2024 7:20 AM ARBORICULTURE INSTRUCTOR 09/12/2024 7:33 AM ARBORICULTURE INSTRUCTOR us Julieta Reddy MD LAB BLOOD ORDERABLES Final Result Performing Organization Address [facility] de Phone Number NICOLE [facility] ([place]) 1 [facility] [place] [address] * (ABNORMAL) Protime-INR (09/12/2024 7:20 AM ARBORICULTURE INSTRUCTOR) PT 20.8(H) 9.7 - 13.0 sec [facility] ([place]) INR 1.90(H) 0.90 - 1.20 [facility] ([place]) Comment: Interpretive data Oral anticoagulant therapeutic ranges: Venous thromboembolism prophylaxis or treatment: 2.0-3.0 CARDIOLOGY Standard range: 2.0-3.0 High-intensity range: 2.5-3.5 Refer to indication-specific guidelines for appropriate target ranges for prosthetic heart valve replacement. Current interpretive data was last revised on 2019. Blood 09/12/2024 7:20 AM ARBORICULTURE INSTRUCTOR 09/12/2024 7:33 AM ARBORICULTURE INSTRUCTOR us Julieta Reddy MD LAB BLOOD ORDERABLES Final Result Performing Organization Address [facility] Co de Phone Number NICOLE [facility] ([place]) 1 [facility] [place] [address] * Fibrinogen (09/12/2024 7:20 AM ARBORICULTURE INSTRUCTOR) Fibrinogen 285 170 - 400 mg/dL [facility] ([place]) Blood 09/12/2024 7:20 AM ARBORICULTURE INSTRUCTOR 09/12/2024 7:33 AM ARBORICULTURE INSTRUCTOR Julieta Reddy MD LAB BLOOD ORDERABLES Final Result [facility] ([place]) 1 [facility] Department [place] [address] * (ABNORMAL) Comprehensive metabolic panel (09/12/2024 7:20 AM ARBORICULTURE INSTRUCTOR) Sodium 132(L) 135 - 145 mmol/L Potassium, pl 4.0 3.3 - 4.9 mmol/L [facility] ([place]) Chloride 100 97 - 110 mmol/L [facility] ([place]) CO2 23 22 - 32 mmol/L [facility] ([place]) Anion gap 9 2 - 15 mmol/L [facility] ([place]) BUN 10 6 - 25 mg/dL [facility] ([place]) Creatinine 0.56(L) 0.80 - 1.30 mg/dL [facility] ([place]) Comment:Icteric sample, test results may be affected. Glucose 114 70 - 199 mg/dL [facility] ([place]) Comment: Interpretive Data Fasting glucose >/= 126 mg/dl is diagnostic for diabetes. Fasting is defined as no caloric intake for at least 8 hours. Fasting glucose between 100 mg/dl to 125 mg/dl is diagnostic of prediabetes. In a patient with classic symptoms of hyperglycemia or hyperglycemic crisis, a random glucose >/= 200 mg/dl is diagnostic for diabetes. In the absence of unequivocal hyperglycemia, results should be confirmed by repeat testing. The classification and Diagnosis of Diabetes Diabetes Care 202; 46: S19-S40. Current interpretive data was last revised 2022. Calcium 8.9 8.5 - 10.3 mg/dL [facility] ([place]) Bilirubin, total 5.7(H) 0.1 - 1.2 mg/dL [facility] ([place]) Protein, pl 5.7(L) 6.5 - 8.5 g/dL [facility] ([place]) Albumin 2.9(L) 3.5 - 5.0 g/dL [facility] ([place]) Alk phos 252(H) 40 - 130 Units/L [facility] ([place]) ALT 104(H) 7 - 55 Units/L [facility] ([place]) AST 82(H) 10 - 50 Units/L [facility] ([place]) Blood 09/12/2024 7:20 AM ARBORICULTURE INSTRUCTOR 09/12/2024 7:33 AM ARBORICULTURE INSTRUCTOR Julieta Reddy MD LAB BLOOD ORDERABLES Final Result [facility] ([place]) 1 [facility] [place] [address] * Hepatitis panel, acute Blood (08/08/2024 6:10 AM ARBORICULTURE INSTRUCTOR) Hep A IgM Nonreactive Nonreactive Comment: Interpretive Data: If Hep A IgM Ab is reported as Equivocal, a new sample should be drawn in two weeks for testing. Current interpretive data was last revised on 19. Testing performed by: [address] [address] Hep B core IgM Nonreactive Nonreactive C [facility] ([place]) Comment: Interpretive Data If HepB Core IgM Ab is reported as Equivocal, a new sample should be drawn in two weeks for testing. Current interpretive data was last revised on 19. Testing performed by: [facility], [address] [place] [address]., [id number] Hep C Ab Nonreactive Nonreactive [facility] ([place] Comment: Interpretive Data Nonreactive: Antibodies to HCV not detected. Does NOT exclude the possibility of recent exposure to HCV. Equivocal: Equivocal for HCV antibodies. Supplemental molecular testing will be automatically performed to determine infection status in accordance with current CDC screening recommendations. Reactive: Positive for HCV antibodies. This may represent current or past HCV infection. Supplemental molecular testing will be automatically performed to determine current infection status in accordance with current CDC screening recommendations. Interpretive data was last revised on 2019. Testing performed by: [facility], [address] [place] [address]., [id number] HepBsAg Nonreactive Nonreactive [facility] ([place]) Comment:Testing performed by : [facility], [address] [place] [address]., [id number] Blood 08/08/2024 6:10 AM ARBORICULTURE INSTRUCTOR 08/08/2024 11:17 AM ARBORICULTURE INSTRUCTOR Julieta Reddy MD LAB MICROBIOLOGY - GENERAL ORDERABLES Final Result [facility]ICOLE [facility] ([place]) 1 [facility] [place] [address] from Last 3 Months or Most Recently Relevant to Health Maintenance Insurance [facility] Advance Directives For more information, please contact: [phone] * Full Code (Latest Code Status on File) Date Activated Date Inactivated Comments 11/13/2024 10:47 AM 11/15/2024 6:34 PM * Full Code Date Activated Date Inactivated Comments 09/10/2024 2:58 PM 09/12/2024 7:12 PM * Full Code Date Activated Date Inactivated Comments 09/09/2024 11:41 AM 09/10/2024 2:58 PM * Full Code Date Activated Date Inactivated Comments 08/28/2024 1:19 PM 09/01/2024 3:46 PM * Full Code Date Activated Date Inactivated Comments 08/20/2024 11:10 PM 08/28/2024 1:19 PM Care Teams Thermostat Maker Relationship Specialty Start Date End Date Berhane Soares MD 2 [facility] [address] [address] PCP - General Family Medicine 09/09/24
--- OUTSIDE RECORDS SUMMARY | 2024-12-13 22:42 | XMS_ITS | Clinical Summary ---
Author Organization [facility] Address [address] [place] [address] Care Team Providers Care [place]et [place] Machine Operator Name Role Phone Berhane Soares MD Primary Care Provider [phone] Allergies Active Allergy Reactions Criticality Noted Date Comments [place] Anaphylaxis High 08/07/2024 Medications benzonatate (TESSALON) 200 mg capsule Take 1 capsule (200 mg total) by mouth 3 (three) times a day 40 capsule 025 Active fluticasone propionate (FLONASE) 50 mcg/actuation nasal spray Administer 2 sprays into each nostril 2 (two) times a day 1 each 025 Active hydrOXYzine (ATARAX) 25 mg tablet Take 1 tablet (25 mg total) by mouth every 8 (eight) hours as needed for anxiety 90 tablet 025 Active Additional Information Patient not taking.Reported on 11/21/2024 simethicone (MYLICON) 125 mg chewable tablet Take 1 tablet (125 mg total) by mouth 4 (four) times a day as needed (cramping/bloat ing/gas/nausea) 120 tablet 3 025 Active albuterol HFA (PROVENTIL HFA,VENTOLIN HFA,PROAIR HFA) [...] times a day 60 tablet 025 2024 Active ondansetron (ZOFRAN) 4 mg tabletIndications [...] as needed for sleep 90 tablet 3 025 2025 Active naltrexone microspheres (VIVITROL) 380 mg [...] nightly as needed for sleep 30 tablet 2024 Discontinued(R eorder) busPIRone (BUSPAR) 5 mg tablet Take 1 tablet (5 mg total) by mouth 2 (two) times a day 60 tablet 2024 Discontinued cyclobenzaprine (FLEXERIL) 10 mg tablet Take 1 tablet (10 mg total) by mouth 2 (two) times a day as needed for muscle spasms for up to 7 days 14 tablet 2024 Discontinued(S top Taking at Discharge) chlordiazePOXIDE [...] Date Cirrhosis 09/09/2024 10/07/2024 Hepatitis 09/09/2024 10/07/2024 Encounters Date Type Department Care Team Description 11/21/2024 9:30 AM CDT Office Visit [facility] at [address] [place] [phone] Berhane Soares MD Alcohol use disorder (Primary Dx); Alcoholic cirrhosis of liver with ascites (HCC); Hepatic encephalopathy (HCC); Anxiety; Nausea and vomiting, unspecified vomiting type 11/17/2024 Telephone [facility] at [address] [place] [phone] Berhane Soares MD 11/14/2024 Documentation [facility] Off Program [address] [place], [place] [phone] Margarita Martinez Meagan 11/13/2024 8:45 AM CDT - 11/15/2024 2:28 PM CDT Hospital Encounter [facility] 1 [place] [address] Bogdan Zambrano MD Richards, John Albert Jr., MD Alcohol use disorder (Primary Dx); RUQ pain; Nausea and vomiting, unspecified vomiting type Discharge Disposition: Discharge to home or self care 10/31/2024 [facility] ED Outreach [facility] Care Organization [address] [place] [id number] Elvia Naidu CMA 10/30/2024 6:28 PM CDT - 10/30/2024 9:41 PM CDT Emergency [facility] Emergency Department 1 [place] [address] Yaakov Pittman MD Wala, Zubin Faiz, MD Abdominal pain, generalized (Primary Dx) Discharge Disposition: Discharge to home or self care 10/20/2024 Results Follow-Up [facility] Gastroenterology at [address] [place] [address] Steven Reyes NP [place] [facility] 10/17/2024 11:50 AM CDT - 10/17/2024 11:59 PM CDT Hospital Encounter [facility] 1 [place] [address] RUQ pain; Nausea without vomiting Discharge Disposition: Discharge to home or self care 10/14/2024 Telephone [facility] Gastroenterology at [address] [place] [address] Jenny Connolly LPN 10/13/2024 Telephone [facility] Gastroenterology at [address] [place] [address] Jenny Connolly LPN 10/10/2024 Telephone [facility] Primary Care at [address] [place] [phone] Berhane Soares MD Prior Auth - Anusol 10/10/2024 Results Follow-Up [facility] Gastroenterology at [address] [place] [address] Steven Reyes NP CBC with auto differential, [id number] , Tumor Marker, Hepatic function panel, Additional followed-up results: 2 10/10/2024 Orders Only [facility] at [address] [phone] Berhane Soares MD Pneumonia due to infectious organism, unspecified laterality, unspecified part of lung (Primary Dx) 10/09/2024 3:00 PM CDT Office Visit [facility] Res[facility] Clinic at [address] [phone] Berhane Soares MD Acute cough (Primary Dx); Bleeding internal hemorrhoids; Hepatic encephalopathy (HCC); Folate deficiency; Alcoholic cirrhosis of liver with ascites (HCC); Elevated bilirubin; Difficulty sleeping; Wheezing 10/07/2024 9:00 AM CDT Lab [address] Alcoholic hepatitis with ascites (HCC); Hepatic steatosis; Hepatomegaly 10/07/2024 8:15 AM CDT Office Visit [facility] Gastroenterology at [address] [place] [address] Steven Reyes NP Alcoholic hepatitis with ascites (HCC) (Primary Dx); Hepatic steatosis; Hepatomegaly; Coagulopathy; Bleeding internal hemorrhoids; Constipation, unspecified constipation type; RUQ pain; Erosive esophagitis; Gastropathy; Leg swelling; Nausea without vomiting 09/09/2024 4:22 AM SPINNING FRAME FIXER - 09/12/2024 3:12 PM SPINNING FRAME FIXER Hospital Encounter [facility] 1 [place] [address] Aleja Coates MD Okonkwo, Kasiemobi Bernice, MD Abdominal pain (Primary Dx); Hepatosplenomegaly; Alcoholic hepatitis, unspecified whether ascites present (HCC); Rectal bleeding Discharge Disposition: Discharge to home or self care from Last 3 Months Medical History Medical History Date Comments Pancreatitis GERD (gastroesophageal reflux disease) 09/2015 Alcohol abuse 09/28 Social History Tobacco Use Types Packs/Day Years Used Date Smoking Tobacco: Some Days Cigarettes 0.7 0.4 Started: 2024 Smokeless Tobacco: Never Tobacco Cessation:Ready to Q uit: Not Asked; Counseling Given: Not Answered [facility] Utilities Answer Date Recorded In the [...] often do you attend chur ch or zoroastrianism services? Never 11/14/2024 Do you belong to any clubs o r organizations such as synagogue groups, unions, fraternal or athletic groups, or [...] any time in the past 12 m [facility], were you homeless or living in a detention (including now)? No 11/14/2024 Personal Safety Answer [...] on file Sexual Orientation Not on file Obstetrics History Last Filed Vital Signs Vital Sign Reading [...] 11/21/2024 9:39 AM CDT Plan of Treatment Health Maintenance Due Date Last Done Comments DTaP/Tdap/Td Vaccine (1 - Tdap) 1996 Varicella Vaccines (1 of 2 - 13+ 2-dose series) 1998 Hepatitis B Screening 09/19/2003 Regular Well Visit/Exam 18-64 09/19/2003 Pneumococcal vaccine <65 (1 of 2 - PCV) 2004 Influenza Vaccine (Season Ended) 2025 Depression Screening 11/21/2025 11/21/2024, 10/09/2024 Hepatitis C Screening Completed 08/08/2024 , 08/06/2024 HPV Vaccines Aged Out No longer eligi ble based on patient's age to complete this topic Procedures Procedure Name Priority Date/Time Associated Diagnosis [...] hepatitis with ascites (HCC) Hepatic steatosis Hepatomegaly [id number], TUMOR MARKER Routine 10/07/2024 8:59 AM CDT Alcoholic hepatitis with ascites (HCC) Hepatic steatosis Hepatomegaly CBC WITH AUTO DIFFERENTIAL Routine 10/07/2024 8:59 AM CDT Alcoholic hepatitis with ascites (HCC) Hepatic steatosis Hepatomegaly MANUAL DIFFERENTIAL Routine 09/12/2024 7 :20 AM SPINNING FRAME FIXER EGFR Routine 09/12/2024 7:20 AM SPINNING FRAME FIXER ZINC Routine 09/12/2024 7:20 AM SPINNING FRAME FIXER FIBRINOGEN Routine 09/12/2024 7:20 AM SPINNING FRAME FIXER PROTIME-INR Routine 09/12/2024 7:20 AM SPINNING FRAME FIXER COMPREHENSIVE METABOLIC PANEL Routine 09/12/2024 7:20 AM SPINNING FRAME FIXER CBC WITH AUTO DIFFERENTIAL Routine 09/12/2024 7:20 AM SPINNING FRAME FIXER HEPATITIS PANEL, ACUTE Routine 08/08/2024 6:10 AM SPINNING FRAME FIXER from Last 3 Months or Most Recently Relevant to Health Maintenance Results * Magnesium (11/15/2024 10:11 AM CDT) Magnesium 1.4 1.4 - 2.5 mg/dL Blood 11/15/2024 10:1 1 AM CDT 11/15/2024 10:15 AM CDT us Inocencio Marie Jr., MD LAB BLOOD ORDERABLE S Final Result [facility] ([place]) 1 [facility] [place], [place] [id number] * eGFR (11/15/2024 5:31 AM CDT) eGFR [...] S Final Result [facility] ([place]) 1 [facility] [place] [address] * (ABNORMAL) CBC without differential (11/15/2024 5:31 AM CDT) Pathologist [facility] WBC 4.83 3.80 - 9.90 K/cumm Hgb 10.9(L) 13.0 - 17.5 g/dL [facility] ([place]) Hct 32.1(L) 38.9 - 50.3 % [facility] ([place]) Plt 120(L) 150 - 400 K/cumm [facility] ([place]) MPV 9.2 9.1 - 12.3 fL [facility] ([place]) RBC 3.61(L) 4.30 - 5.80 M/cumm [facility] ([place]) MCV 88.9 81.3 - 96.4 fL [facility] ([place]) MCH 30.2 27.1 - 33.3 pg [facility] ([place]) MCHC 34.0 32.3 - 35.7 g/dL [facility] ([place]) RDW CV 13.0 11.1 - 14.9 % [facility] ([place]) RDW SD 41.9 35.7 - 48.1 fL [facility] ([place]) NRBC abs 0.00 0.00 - 0.01 K/cumm [facility] ([place]) Blood 11/15/2024 5:31 AM CDT 11/15/2024 6:24 AM CDT us Inocencio Marie Jr., MD LAB BLOOD ORDERABLE S Final Result [facility] ([place]) 1 [facility] Department [place] [address] * (ABNORMAL) Comprehensive metabolic panel (11/15/2024 5:31 AM CDT) Pathologist [facility] Sodium 138 135 - 145 mmol/L Potassium, pl 3.5 3.3 - 4.9 mmol/L [facility] ([place]) Chloride 102 97 - 110 mmol/L [facility] ([place]) CO2 24 22 - 32 mmol/L [facility] ([place]) Anion gap 12 2 - 15 mmol/L [facility] ([place]) BUN <3(L) 6 - 25 mg/dL [facility] ([place]) Creatinine 0.66(L) 0.80 - 1.30 mg/dL [facility] ([place]) Comment:Icteric sample, test results may be affected. Glucose 91 70 - 199 mg/dL [facility] ([place]) [...] S Final Result [facility] ([place]) 1 [facility] [place] [address] * eGFR (11/14/2024 8:17 AM CDT) eGFR [...] LAB BLOOD ORDERABLE S Final Result [facility] ([place]) 1 [facility] Department [place] [address] * (ABNORMAL) CBC without differential (11/14/2024 8:17 AM CDT) Pathologist [facility] WBC 5.11 3.80 - 9.90 K/cumm Hgb 10.7(L) 13.0 - 17.5 g/dL [facility] Hct 31.0(L) 38.9 - 50.3 % [facility] ([place]) Plt 118(L) 150 - 400 K/cumm [facility] ([place]) MPV 8.8(L) 9.1 - 12.3 fL [facility] ([place]) RBC 3.53(L) 4.30 - 5.80 M/cumm [facility] ([place]) MCV 87.8 81.3 - 96.4 fL [facility] ([place]) MCH 30.3 27.1 - 33.3 pg [facility] ([place]) MCHC 34.5 32.3 - 35.7 g/dL [facility] RDW CV 12.8 11.1 - 14.9 % [facility] ([place]) RDW SD 40.4 35.7 - 48.1 fL [facility] ([place]) NRBC abs 0.00 0.00 - 0.01 K/cumm [facility] ([place]) Blood 11/14/2024 8:17 AM CDT 11/14/2024 8:37 AM CDT us Inocencio Marie Jr., MD LAB BLOOD ORDERABLE S Final Result [facility] 1 [facility] Department [place] [address] * (ABNORMAL) Comprehensive metabolic panel (11/14/2024 8:17 AM CDT) Sodium 134(L) 135 - 145 mmol/L Potassium, pl 3.2(L) 3.3 - 4.9 mmol/L [facility] ([place]) Chloride 96(L) 97 - 110 mmol/L [facility] CO2 24 22 - 32 mmol/L [facility] Anion gap 14 2 - 15 mmol/L [facility] ([place]) BUN <3(L) 6 - 25 mg/dL [facility] ([place]) Creatinine 0.63(L) 0.80 - 1.30 mg/dL [facility] ([place]) Comment:Icteric sample, test results may be affected. Glucose 126 70 - 199 mg/dL [facility] ([place]) Comment: Interpretive Data Fasting glucose [...] S Final Result [facility] ([place]) 1 [facility] [place] [address] * XR Chest 1 View (11/13/2024 11:07 [...] Kaylie Echols D.O. PS: PS Report ID: [id number] Reading Location: [id number] Procedure Note Kaylie Echols, DO - 11/13/2024 EXAM DESCRIPTION: XR CHEST 1 [...] Kaylie Echols D.O. PS: PS Report ID: [id number] Reading Location: [id number] Bogdan Zambrano MD IMG XR PROCEDURES [...] wall thickening 0.7 cm. No pericholecystic fluid. Gas Station Clerk reports negative sonographic Styles's sign. BILIARY: There [...] Kostas Grove M.D. CH: MEME Report ID: [id number] Reading Location: [id number] Procedure Note Kostas Grove Jr., MD - [...] wall thickening 0.7 cm. No pericholecystic fluid. Gas Station Clerk reports negative sonographic Styles's sign. BILIARY: There [...] Electronically signed by Kostas Grove M.D. CH: Report ID: [id number] Reading Location: [place] [address] Bogdan Zambrano MD IMG US PROCEDURES F inal Result * ABO/Rh (11/13/2024 10:06 AM CDT) ABO/Rh A Positive Blood 11/13/2024 10:0 6 AM CDT 11/13/2024 10:09 AM CDT Narrative [facility] ([place]) - 11/13/2024 10:50 AM CDT Has the patient had Daratumumab or Isatuximab in the past 6 months?->Unknown Bogdan Zambrano MD LAB BLOOD BANK TEST ORDERABLES Final Result [facility] ([place]) 1 [facility] [place] [address] * Antibody screen (11/13/2024 10:06 AM CDT) Bryan, indirect, Gel Interpretation Negative ABSC Blood 11/13/2024 10:0 6 AM CDT 11/13/2024 10:09 AM CDT Narrative [facility] ([place]) - 11/13/2024 10:50 AM CDT Has the patient had Daratumumab or Isatuximab in the past 6 months?->Unknown Bogdan Zambrano MD LAB BLOOD BANK TEST ORDERABLES Final Result [facility] ([place]) 1 [facility] [place] [address] * (ABNORMAL) Ammonia (11/13/2024 9:07 AM CDT) Ammonia 56(H) <=50 mcmol/L Blood 11/13/2024 9:07 AM CDT 11/13/2024 9:13 AM CDT Bogdan Zambrano MD LAB BLOOD ORDERABLE S Final Result Performing Organization Address City/[facility]/ZIP Co de Phone Number [facility] ([place]) 1 [facility] [place] [address] * eGFR (11/13/2024 8:48 AM CDT) eGFR [...] BLOOD ORDERABLE S Final Result [facility] ([place]) 1 [facility] Department [place] [address] * Differential, auto (11/13/2024 8:48 AM CDT) [...] MD LAB BLOOD ORDERABLE S Final Result [facility] ([place]) 1 [facility] Department [place] [address] * (ABNORMAL) CBC with auto differential (11/13/2024 8:48 AM CDT) WBC 7.52 3.80 - 9.90 K/cumm Hgb [...] RDW SD 40.1 35.7 - 48.1 fL [facility] ([place]) NRBC abs 0.00 0.00 - 0.01 K/cumm [facility] ([place]) Blood 11/13/2024 8:48 AM CDT 11/13/2024 8:52 AM CDT Bogdan Zambrano MD LAB BLOOD ORDERABLE S Final Result Performing Organization Address [facility] Co de Phone Number [facility] ([place]) 1 [facility] [place] [address] * (ABNORMAL) Protime-INR (11/13/2024 8:48 AM CDT) PT 16.9(H) 9.7 - 13.0 sec [facility] ([place] INR 1.55(H) 0.90 - 1.20 [facility] ([place]) Comment: Interpretive data Oral anticoagulant therapeutic ranges: Venous thromboembolism prophylaxis or treatment: 2.0-3.0 CARDIOLOGY Standard range: 2.0-3.0 High-intensity range: 2.5-3.5 Refer to indication-specific guidelines for appropriate target ranges for prosthetic heart valve replacement. Current interpretive data was last revised on 2019. Blood 11/13/2024 8:48 AM CDT 11/13/2024 8:52 AM CDT us Bogdan Zambrano MD LAB BLOOD ORDERABLE S Final Result Performing Organization Address [facility] Co de Phone Number [facility] ([place]) 1 [facility] [place] [address] * (ABNORMAL) Magnesium (11/13/2024 8:48 AM CDT) Magnesium 1.2(L) 1.4 - 2.5 mg/dL Blood 11/13/2024 8:48 AM CDT 11/13/2024 10:54 AM CDT Bogdan Zambrano MD LAB BLOOD ORDERABLE S Final Result [facility] ([place]) 1 [facility] [place] [address] * Lipase (11/13/2024 8:48 AM CDT) Lipase 41 10 - 99 Units/L Blood 11/13/2024 8:48 AM CDT 11/13/2024 8:52 AM CDT us Bogdan Zambrano MD LAB BLOOD ORDERABLE S Final Result Performing Organization Address [facility] Co de Phone Number [facility] ([place]) 1 [facility] [place] [address] * Acetaminophen level (11/13/2024 8:48 AM CDT) [...] after ingestion Consult toxicology or poison control ([phone]) for unknown ingestion time. Current interpretive data was last revised 2023. Blood 11/13/2024 8:48 AM CDT 11/13/2024 9:00 AM CDT us Bogdan Zambrano MD LAB BLOOD ORDERABLE S Final Result Performing Organization Address City/[facility]/ZIP Co de Phone Number [facility] ([place]) 1 [facility] [place] [address] * (ABNORMAL) Comprehensive metabolic panel (11/13/2024 8:48 AM CDT) Sodium 140 135 - 145 mmol/L Potassium, [...] S Final Result [facility] ([place]) 1 [facility] Department [place] [address] * CT Abdomen Pelvis W Contrast (10/30/2024 [...] Jean Fagan M.D. AG: LALITA Report ID: [id number] Reading Location: [id number] Procedure Note Jean Fagan MD - 10/30/2024 [...] Jean Fagan M.D. AG: AG Report ID: [id number] Reading Location: [place] [address] Bartolome Marquez MD IMG CT PROCEDURES Final Result * (ABNORMAL) Drugs of Abuse Screen, Urine with Reflex Confirmation (10/30/2024 7:38 PM CDT) Pathologist [facility] Amphetamine, ur Not Detected CutOff 500ng/mL Comment: [...] 2023. Opiates, ur Not Detected CutOff 300ng/mL [facility] ([place]) Comment: Interpretive Data - Opiates: Samples containing greater than 300 ng/mL morphine or other cross-reacting compounds are reported as positive. False positive and false negative results are possible. Confirmatory testing required for definitive results. Current Interpretive Data was last reviewed 2023. Oxycodone, ur Not Detected CutOff 100ng/mL [facility] ([place]) Comment: Interpretive Data - Oxycodone: Samples containing greater than 100 ng/mL oxycodone or other cross-reacting compounds are reported as positive. False positive and false negative results are possible. Confirmatory testing required for definitive results. Current Interpretive Data was last reviewed 2023. Phencyclidine, ur Not Detected CutOff 25 ng/mL [facility] ([place]) Comment: Interpretive Data - Phencyclidine: Samples containing greater than 25 ng/mL phencyclidine or other cross-reacting compounds are reported as positive. False positive and false negative results are possible. Confirmatory testing required for definitive results. Current Interpretive Data was last reviewed 2023. Urine Creatinine 131 mg/dL [facility] ([place]) Comment: Interpretive Data Urine Creatinine: < [...] MD LAB URINE ORDERABLES Final Resul t Performing Organization Address City/[facility] Co de Phone Number [facility] ([place]) 1 [facility] Department [place] [address] * eGFR (10/30/2024 7:15 PM CDT) eGFR [...] ORDERABLES Final R esult Performing Organization Address City/[facility]/ZIP Co de Phone Number [facility] ([place]) 1 [facility] [place] [address] * (ABNORMAL) Creatine kinase (CK), total (10/30/2024 7:15 PM CDT) CK 14(L) 40 - 300 Units/L Blood 10/30/2024 7:15 PM CDT 10/30/2024 7:19 PM CDT us Yaakov Pittman MD LAB BLOOD ORDERABLES Final R esult Performing Organization Address [facility] Co de Phone Number [facility] ([place]) 1 [facility] [place] [address] * Ethanol (10/30/2024 7:15 PM CDT) Pathologist [facility] Ethanol <10 <=10 mg/dL Comment: Interpretive Data Legal limit of intoxication > or = 80 mg/dL Levels > or = 400 mg/dL are potentially TOXIC. Current interpretive data was last revised on 2018. Blood 10/30/2024 7:15 PM CDT 10/30/2024 7:22 PM CDT Narrative [facility] ([place]) - 10/30/2024 7:42 PM CDT Stefania assured us the site was cleaned with iodine us Bartolome Marquez MD LAB BLOOD ORDERABLES Final Resul t Performing Organization Address City/[facility]/ZIP Co de Phone Number [facility] ([place]) 1 [facility] [place] [address] * (ABNORMAL) Comprehensive metabolic panel (10/30/2024 7:15 PM CDT) Sodium 133(L) 135 - 145 mmol/L Potassium, pl 3.5 3.3 - 4.9 mmol/L [facility] ([place]) Chloride 99 97 - 110 mmol/L [facility] ([place]) CO2 23 22 - 32 mmol/L [facility] ([place]) Anion gap 12 2 - 15 mmol/L [facility] ([place]) BUN 7 6 - 25 mg/dL [facility] ([place]) Creatinine 0.62(L) 0.80 - 1.30 mg/dL [facility] ([place]) Glucose 127 70 - 199 mg/dL [facility] ([place]) [...] MD LAB BLOOD ORDERABLES Final R esult [facility] 1 [facility] [place] [address] * Urinalysis reflex to microscopic and culture [...] tendency for uric acid stone formation. Source: [facility] Current Interpretive Data was last revised on 2017 Protein, ur ql Negative Negative [facility] ([place]) Glucose, ur ql Negative Negative [facility] ([place]) Ketones, ur Negative Negative [facility] ([place]) Bilirubin, ur Negative Negative [facility] ([place]) Blood, ur Negative Negative [facility] ([place]) Urobilinogen, ur <2.0 <2.0 mg/dL [facility] ([place]) Nitrite, ur Negative Negative [facility] ([place]) Leukocyte esterase, ur Negative Negative [facility] ([place]) UA reflex comment Reflex conditions for microscopic UA and culture not met. [facility] ([place]) Urine 10/30/2024 1:45 PM CDT 10/30/2024 1:49 PM CDT Yaakov Pittman MD LAB MICROBIOLOGY - GENERAL O RDERABLES Final Result [facility] ([place]) 1 [facility] [place] [address] * eGFR (10/30/2024 1:38 PM CDT) eGFR [...] glomerular filtration rate is determined by the 2021 CKD-EPI equation recommended by the National Kidney [...] BLOOD ORDERABLES Final R esult [facility] ([place]) 1 [facility] Department [place] [address] * Differential, auto (10/30/2024 1:38 PM CDT) Neutrophil abs 3.97 1.50 - 6.50 K/cumm Imm gran abs 0.09 0.00 - 0.10 K/cumm [facility] ([place]) Lymphocyte abs 2.02 0.80 - 3.30 K/cumm [facility] ([place]) Monocyte abs 0.76 0.20 - 0.80 K/cumm [facility] ([place]) Eosinophil abs 0.06 0.00 - 0.50 K/cumm [facility] ([place]) Basophil abs 0.03 0.00 - 0.10 K/cumm [facility] ([place]) Neutrophil pct 57.3 % [facility] ([place]) Comment: Interpretive Data Percent cell count reference ranges are not reported, since discordance with absolute values may lead to misinterpretation of CBC data. Current Interpretive Data was last revised on 2017. Imm gran pct 1.3 % [facility] ([place]) Comment: Interpretive Data [...] MD LAB BLOOD ORDERABLES Final R esult [facility] ([place]) 1 [facility] Department [place] [address] * (ABNORMAL) CBC with auto differential (10/30/2024 [...] ([place]) MCHC 34.2 32.3 - 35.7 g/dL [facility] ([place]) RDW CV 12.1 11.1 - 14.9 % [facility] ([place]) RDW SD 40.2 35.7 - 48.1 fL [facility] ([place]) NRBC abs 0.00 0.00 - 0.01 K/cumm [facility] ([place]) Blood Venous blood specimen / Unknown 10/30/2024 1:38 PM CDT 10/30/2024 1:40 PM CDT Yaakov Pittman MD LAB BLOOD ORDERABLES Final R esult [facility] ([place]) 1 [facility] [place] [address] * Lipase (10/30/2024 1:38 PM CDT) Pathologist [facility] Lipase 42 10 - 99 Units/L Blood Venous blood specimen / Unknown 10/30/2024 1:38 PM CDT 10/30/2024 1:40 PM CDT Yaakov Pittman MD LAB BLOOD ORDERABLES Final R esult [facility] 1 [facility] [place] [address] * (ABNORMAL) Comprehensive metabolic panel (10/30/2024 1:38 PM CDT) Pathologist [facility] Sodium 138 135 - 145 mmol/L Potassium, pl 4.3 3.3 - 4.9 mmol/L [facility] ([place]) Chloride 103 97 - 110 mmol/L [facility] ([place]) CO2 23 22 - 32 mmol/L [facility] ([place]) Anion gap 12 2 - 15 mmol/L [facility] ([place]) BUN 7 6 - 25 mg/dL [facility] ([place]) Creatinine 0.67(L) 0.80 - 1.30 mg/dL [facility] ([place]) Glucose 101 70 - 199 mg/dL [facility] ([place]) Comment: Interpretive Data Fasting glucose [...] BLOOD ORDERABLES Final R esult [facility] ([place]) 1 [facility] [place] [address] * NM Hepatobiliary Imaging W GBEF (10/17/2024 [...] Lila Mitchell M.D. FT: FT Report ID: [id number] Reading Location: [id number] Procedure Note Lila Howe MD - 10/17/2024 [...] Lila Mitchell M.D. FT: FT Report ID: [id number] Reading Location: [place] [address] Steven Zuri Bilderback CLOTH LAMINATING SUPERVISOR IMG NM PROCEDURES F inal Result * POC Influenza A/B, COVID-19 antigen (10/09/2024 2:50 PM CDT) Influenza A Ag, POC Negative Negative [facility] Influenza B Ag, POC Negative Negative [facility] COVID-19 Ag POC Presumptive Negative Presumptive Negative, Invalid [facility] Nasal 10/09/2024 2:50 PM CDT Berhane Soares MD POINT OF CARE TEST ORDERABLE S Final Result [facility] [address] [id number] * (ABNORMAL) Fibro Test-Acti Test (10/07/2024 8:59 AM CDT) FibroTest Score 0.83 [place] ref Lab FibroTest Stage F4 [facility] ([place]) FibroTest Interpretation severe fibrosis [facility] ([place]) Comment: FibroTest estimates liver fibrosis FibroTest Score Stage Interpretation 0.00-0.21 F0 no fibrosis 0.21-0.27 F0-F1 no fibrosis 0.27-0.31 F1 minimal fibrosis 0.31-0.48 F1-F2 minimal fibrosis 0.48-0.58 F2 moderate fibrosis 0.58-0.72 F3 advanced fibrosis 0.72-0.74 F3-F4 advanced fibrosis 0.74-1.00 F4 severe fibrosis (Cirrhosis) ActiTest Score 0.58 PIA YBARRA DEREK) ActiTest Grade A2 [facility] ([place]) ActiTest Interpretation SEE BELOW [facility] ([place]) Comment: RESULT: significant activity ActiTest estimates necroinflammatory activity ActiTest Score Grade Interpretation 0.00-0.17 A0 no activity 0.17-0.29 A0-A1 no activity 0.29-0.36 A1 minimal activity 0.36-0.52 A1-A2 minimal activity 0.52-0.60 A2 significant activity 0.60-0.62 A2-A3 significant activity 0.62-1.00 A3 severe activity FibroTest-ActiTest Comment See Comment NICOLE REED) Comment: The reliability of results is dependent on compliance with the preanalytical and analytical conditions recommended by [employer]. The tests have to be deferred for: [...] developed and its performance characteristics determined by [facility] in a manner consistent with CLIA requirements. This test has not been cleared or approved by the U.S. Food and Drug Administration. [employer] Serial Number [id number] [facility] ([place]) APOLIPOPROTEIN A1 82(L) >=120 mg/dL [facility] ([place]) Cnykh-0-Ipcukohoxocqg, Ser 210 100 - 280 mg/dL [facility] ([place]) Haptoglobin, S 113 30 - 200 mg/dL [facility] ([place]) Alanine Aminotransferase (ALT), S 64(H) 7 - 55 Units/L [facility] ([place]) Gamma Glutamyltransferase (GGT), S 479(H) 8 - 61 Units/L [facility] ([place]) Bilirubin, Total, S 1.9(H) 0.0 - 1.2 mg/dL [facility] ([place]) Comment: Test Performed by: [facility] [address] [place] [address] Cultural Historian: Andrei Strong Ph.D.; CLIA# [id number] Test Performed by: [facility] [address] [place] [address] Cultural Historian: Andrei Strong Ph.D.; CLIA# [id number] Blood 10/07/2024 8:59 AM CDT 10/07/2024 10:35 AM CDT Steven Reyes CLOTH LAMINATING SUPERVISOR LAB BLOOD ORDERABLE S Final Result [facility] ([place] 1 [facility] Department of Laboratories [place], [place] [id number] [place] ref Lab * (ABNORMAL) Differential, auto (10/07/2024 8:59 AM CDT) Neutrophil abs 4.9 1.5 - 6.5 K/cumm Imm gran abs 0.3(H) 0.0 - 0.1 K/cumm [facility] ([place]) Lymphocyte abs 1.5 0.8 - 3.3 K/cumm [facility] ([place]) Monocyte abs 0.5 0.2 - 0.8 K/cumm [facility] ([place]) Eosinophil abs 0.0 0.0 - 0.5 K/cumm [facility] ([place]) Basophil abs 0.0 0.0 - 0.1 K/cumm [facility] ([place]) Neutrophil pct 68.3 % [facility] ([place]) Comment: Interpretive Data Percent cell count reference ranges are not reported, since discordance with absolute values may lead to misinterpretation of CBC data. Current Interpretive Data was last revised on 2017. Imm gran pct 3.5 % [facility] ([place]) Comment: Interpretive Data [...] revised on 2017. Monocyte pct 6.7 % [facility] ([place]) Comment: Interpretive Data Percent cell count reference ranges are not reported, since discordance with absolute values may lead to misinterpretation of CBC data. Current Interpretive Data was last revised on 2017. Eosinophil pct 0.4 % [facility] ([place]) Comment: Interpretive Data Percent cell count reference ranges are not reported, since discordance with absolute values may lead to misinterpretation of CBC data. Current Interpretive Data was last revised on 2017. Basophil pct 0.6 % [facility] ([place]) Comment: Interpretive Data Percent cell count reference ranges are not reported, since discordance with absolute values may lead to misinterpretation of CBC data. Current Interpretive Data was last revised on 2017. Blood 10/07/2024 8:59 AM CDT 10/07/2024 10:35 AM CDT Steven Reyes CLOTH LAMINATING SUPERVISOR LAB BLOOD ORDERABLE S Final Result [facility] ([place]) 1 [facility] Department of Laboratories [place], [place] [id number] * (ABNORMAL) CBC with auto differential (10/07/2024 8:59 AM CDT) WBC 7.2 3.8 - 9.9 K/cumm Hgb 11.3(L) 13.0 - 17.5 g/dL [facility] ([place]) Hct 34.4(L) 38.9 - 50.3 [...] - 0.01 K/cumm [facility] ([place]) Blood 10/07/2024 8:59 AM CDT 10/07/2024 10:35 AM CDT us Steven Reyes CLOTH LAMINATING SUPERVISOR LAB BLOOD ORDERABLE S Final Result [facility] ([place]) 1 [facility] Department of Laboratories [place], [place] [id number] * Jqzpu-0-Grtvyrwvgbq, Tumor Marker (10/07/2024 8:59 AM CDT) alpha [...] al. Clin Chem Lab Med 2018;[id number] Ekaterina V. et al. Clin Chem 2014;[id number]. Current interpretive data was last revised 2022. Testing performed by: [facility], [address] [place]., [address] Blood 10/07/2024 8:59 AM CDT 10/07/2024 4:06 PM CDT [facility] CLOTH LAMINATING SUPERVISOR LAB BLOOD ORDERABLE S Final Result [facility] ([place]) [address] [place] [address] [place] [address] * (ABNORMAL) Hepatic function panel (10/07/2024 8:59 [...] 8:59 AM CDT 10/07/2024 10:35 AM CDT [facility] CLOTH LAMINATING SUPERVISOR LAB BLOOD ORDERABLE S Final Result [facility] ([place]) 1 [facility] [place] [address] * eGFR (09/12/2024 7:20 AM SPINNING FRAME FIXER) eGFR >90 >=60 mL/min/1. 73 m2 Comment: [...] last reviewed 2021. Blood 09/12/2024 7:20 AM SPINNING FRAME FIXER 09/12/2024 7:33 AM SPINNING FRAME FIXER us Julieta Reddy MD LAB BLOOD ORDERABLES Final Result [facility] ([place]) 1 [facility] Department of Laboratories [place], [place] [id number] * (ABNORMAL) CBC with auto differential (09/12/2024 7:20 AM SPINNING FRAME FIXER) WBC 12.1(H) 3.8 - 9.9 K/cumm Hgb [...] ([place]) MCHC 33.8 32.3 - 35.7 g/dL [facility] ([place]) RDW CV 12.9 11.1 - 14.9 % [facility] ([place]) RDW SD 47.9 35.7 - 48.1 fL [facility] ([place]) NRBC abs 0.00 0.00 - 0.01 K/cumm [facility] ([place]) Blood 09/12/2024 7:20 AM SPINNING FRAME FIXER 09/12/2024 7:33 AM SPINNING FRAME FIXER Julieta Reddy MD LAB BLOOD ORDERABLES Final Result Performing Organization Address [facility] de Phone Number [facility]ICOLE [facility]RA ([place]) 1 [facility] [place] [address] * Zinc (09/12/2024 7:20 AM SPINNING FRAME FIXER) [facility] Zinc 84 60 - 106 mcg/dL [place] ref Lab Comment: ADDITIONAL INFORMATION This test was developed and its performance characteristics determined by [facility] in a manner consistent with CLIA requirements. This test has not been cleared or approved by the U.S. Food and Drug Administration. Test Performed by: [facility] [place] [address] Cultural Historian: Andrei Strong Ph.D.; CLIA# [id number] Blood 09/12/2024 7:20 AM SPINNING FRAME FIXER 09/12/2024 7:34 AM SPINNING FRAME FIXER Julieta Reddy MD LAB BLOOD ORDERABLES Final Result Performing Organization Address [facility] Co de Phone Number [facility] ([place]) 1 [facility] [place] [address] [place] ref Lab * (ABNORMAL) Manual Differential (09/12/2024 7:20 AM SPINNING FRAME FIXER) Differential Manual Cells Counted 100 [facility] [...] revised on 2017. Monocyte pct 10.0 % [facility] ([place]) Comment: Interpretive Data Percent cell count reference ranges are not reported, since discordance with absolute values may lead to misinterpretation of CBC data. Current Interpretive Data was last revised on 2017. Band Neutrophil pct 1.0 0.0 - 5.0 % [facility] ([place]) Variant lymph pct 1.0(H) 0.0 - 0.0 % [facility] ([place]) RBC morphology Consistent with RBC Indicies [facility] ([place]) Platelet estimate Automated Count Confirmed [facility] ([place]) Blood 09/12/2024 7:20 AM SPINNING FRAME FIXER 09/12/2024 7:33 AM SPINNING FRAME FIXER us Julieta Reddy MD LAB BLOOD ORDERABLES Final Result [facility] ([place]) 1 [facility] Department of Laboratories [place], [place] [id number] * (ABNORMAL) Protime-INR (09/12/2024 7:20 AM SPINNING FRAME FIXER) PT 20.8(H) 9.7 - 13.0 sec [facility] ([place]) INR 1.90(H) 0.90 - 1.20 [facility] ([place]) Comment: Interpretive data Oral anticoagulant therapeutic ranges: Venous thromboembolism prophylaxis or treatment: 2.0-3.0 CARDIOLOGY Standard range: 2.0-3.0 High-intensity range: 2.5-3.5 Refer to indication-specific guidelines for appropriate target ranges for prosthetic heart valve replacement. Current interpretive data was last revised on 2019. Blood 09/12/2024 7:20 AM SPINNING FRAME FIXER 09/12/2024 7:33 AM SPINNING FRAME FIXER Julieta Reddy MD LAB BLOOD ORDERABLES Final Result [facility] ([place]) 1 [facility] [place] [address] * Fibrinogen (09/12/2024 7:20 AM SPINNING FRAME FIXER) Pathologist [facility] Fibrinogen 285 170 - 400 mg/dL [facility] ([place]) Blood 09/12/2024 7:20 AM SPINNING FRAME FIXER 09/12/2024 7:33 AM SPINNING FRAME FIXER Julieta Reddy MD LAB BLOOD ORDERABLES Final Result Performing Organization Address City/[facility]/ZIP Co de Phone Number [facility] ([place]) 1 [facility] [place] [address] * (ABNORMAL) Comprehensive metabolic panel (09/12/2024 7:20 AM SPINNING FRAME FIXER) Sodium 132(L) 135 - 145 mmol/L Potassium, pl 4.0 3.3 - 4.9 mmol/L [facility] ([place]) Chloride 100 97 - 110 mmol/L [facility] ([place]) CO2 23 22 - 32 mmol/L [facility] ([place]) Anion gap 9 2 - 15 mmol/L [facility] ([place]) BUN 10 6 - 25 mg/dL [facility] ([place]) Creatinine 0.56(L) 0.80 - 1.30 mg/dL [facility] ([place]) Comment:Icteric sample, test results may [...] [facility] ([place]) Blood 09/12/2024 7:20 AM SPINNING FRAME FIXER 09/12/2024 7:33 AM SPINNING FRAME FIXER us Julieta Reddy MD LAB BLOOD ORDERABLES Final Result [facility] ([place]) 1 [facility] Department [place] [address] * Hepatitis panel, acute Blood (08/08/2024 6:10 AM SPINNING FRAME FIXER) Hep A IgM Nonreactive Nonreactive Comment: Interpretive Data: If Hep A IgM Ab is reported as Equivocal, a new sample should be drawn in two weeks for testing. Current interpretive data was last revised on 19. Testing performed by: [facility], [address] [place] [address], [place]., [address] Hep B core IgM Nonreactive Nonreactive [facility] ([place]) Comment: Interpretive Data If HepB Core IgM Ab is reported as Equivocal, a new sample should be drawn in two weeks for testing. Current interpretive data was last revised on 19. Testing performed by: [address] [address] Hep C Ab Nonreactive Nonreactive [facility] ([place]) Comment: Interpretive Data Nonreactive: Antibodies to [...] last revised on 2019. Testing performed by: [facility], [address] [place] [address]., [id number] HepBsAg Nonreactive Nonreactive [facility]LE [facility] ([place]) Comment:Testing performed by : [address] [address] Blood 08/08/2024 6:10 AM SPINNING FRAME FIXER 08/08/2024 11:17 AM SPINNING FRAME FIXER Julieta Reddy MD LAB MICROBIOLOGY - GENERAL ORDERABLES Final Result [facility]LE [facility] ([place]) 1 [facility] [place] [address] from Last 3 Months or Most Recently Relevant to Health Maintenance Insurance [facility] CHOICE PLUS [facility] Advance Directives For more information, please contact: [phone] * Full Code (Latest Code Status on [...] 11:10 PM 08/28/2024 1:19 PM Care Teams [place] Machine Operator Relationship Specialty Start Date End Date Berhane Soares MD [address] [facility] [address] MOHAN [address] [place] [id number] PCP - General Family Medicine 09/09/24
[2024-12-13 22:45] LABS: Potassium 3.2 mmol/L (3.4-5.0)
[2024-12-13] MEDS: HYDROmorphone HCL INJ (*CRX) 2 MG/ML VIAL 0.5 MG IV PUSH (23:03)
[2024-12-13] MEDS: ONDANSETRON INJ 4 MG/2 ML VIAL IV PUSH (23:03)
[2024-12-13] MEDS: LACTATED RINGERS 1,000 ML 999 ML IV CONT ×2 (23:04)
[2024-12-13 23:08] LABS: Lymphocytes Absolute Manual 2.91 K/mm3 (1.1-4.5); Monocytes Absolute Manual 0.11 K/mm3 (0.1-0.90); Monocytes Percent Manual 2 % (3-9); Neutrophils Percent Manual 45 % (46-73); Total Cells Counted 100
[2024-12-13 23:11] LABS: Anisocytosis 1+; Atypical Lymphocytes Present; Band Neutrophils Percent 0 % (0-6); Neutrophils Absolute Manual 2.52 K/mm3 (1.3-6.7); Platelet Estimate Decreased (Adequate); Schistocytes None Seen; Smudge Cells FEW
[2024-12-13 23:12] LABS: Metamyelocytes Percent 1 %
--- NOTE | 2024-12-13 23:24 | ED_ITS ---
HPI - Abdominal Pain General Chief Complaint: Abdominal Pain Stated Complaint: Shortness of breath x 1hr, hiccups/abd pain Time Seen by Provider: 12/13/24 22:12 History of Present Illness HPI narrative: 39-year-old male with a past medical history including alcoholism, liver cirrhosis, homelessness. He has a history of pancreatitis and presents to the emergency department with abdominal pain that he states is chronic and unchanged. He was found outside a local establishment and please were called. Patient is complaining of some abdominal discomfort and drinking throughout the evening. He states he has been drinking shots of alcohol does not clinically intoxicated. He states his pancreatitis is likely flaring up. He is thirsty and requesting something to drink. Was otherwise in his normal state of health denies any falls or injuries, trauma. He has had several episodes of nausea without any vomiting. No shortness of breath, chest pain, abdominal pain, fever, chills. Related Data Allergies Allergy/AdvReac Type Severity Reaction Status Date / Time No Known Allergies Allergy Verified 12/13/24 19:29 Review of Systems 2 Review of Systems: As reviewed above in HPI Exam 2 Narrative: GENERAL: Uncomfortable appearing but not any acute distress. Disheveled dirty clothing HEAD: [Normocephalic, atraumatic.] EYES: [PERRLA and EOMI.] ENT: Nares clear, no rhinorrhea or epistaxis. Mucous membranes moist. NECK: Supple. CHEST: [Clear to auscultation. No respiratory distress.] HEART: [Regular rate and rhythm]. No murmur heard. [Normal peripheral pulses.] ABDOMEN: [Soft, nondistended], mildly tender to palpation but not diffuse, [No rigidity or guarding] EXTREMITIES: Normal range of motion. [No edema.] SKIN: Warm, dry, no rash. NEURO: [No focal deficits]. Alert and oriented [x3.] PSYCH: [Normal mood and affect.] Course Vital Signs Vital signs: Vital Signs Temperature 36.5 C 12/13/24 19:32 Pulse Rate 118 H 12/13/24 19:32 Respiratory Rate 95 H 12/13/24 19:32 Blood Pressure 129/63 12/13/24 19:32 Pulse Oximetry 95 12/13/24 19:32 Oxygen Delivery Room Air 12/13/24 19:32 Temperature 36.5 C 12/13/24 19:32 Pulse Rate 78 12/14/24 01:30 Respiratory Rate 15 12/14/24 01:30 Blood Pressure 119/77 12/14/24 01:30 Pulse Oximetry 100 12/14/24 01:30 Oxygen Delivery Room Air 12/13/24 19:32 MDM - Abdominal Pain MDM Narrative Medical decision making narrative: 39-year-old male with history of alcoholism, homelessness, liver cirrhosis and history of pancreatitis. He presents to the emergency department with some mild nauseousness and epigastric abdominal pain. Patient states his abdominal pain is chronic. He was found outside a local establishment where he states he was drinking several shots of alcohol that made his abdomen pain worse. He is not any acute distress but is uncomfortable in disheveled in appearance. Mildly tachycardic in triage but no tachypnea, fever, hypoxia blood pressure concerns. Reassuring examination with some slightly dry mucous membranes. Patient likely has a flare of pancreatitis secondary to alcohol intake but other causes could be considered including gastroenteritis, gastritis, less likely cholecystitis or hepatitis, appendicitis. His examination is reassuring is afebrile. Laboratory studies were drawn including CBC, CMP, lipase. Urinalysis ordered. He was given 2 L of hydration and hydromorphone and Zofran for symptom control and will be re-evaluated afterwards. Patient had some symptomatic improvement after treatments. No advanced imaging necessary at this time as he has chronic abdominal pain with improvement after treatments. He refused to give urinalysis despite multiple attempts and multiple inquiries by staff and myself. Patient had normal vitals, laboratory assessments are unremarkable. No leukocytosis or significant anemia. LFTs consistent with his alcohol liver disease. Negative lipase. Patient likely has pain consistent with chronic pancreatitis and can safely discharged home at this time. Patient given return precautions. Medical Records Attestation: I reviewed the patient's medical records. Lab Data Attestation: I reviewed the patient's lab results. 12/13/24 22:27 12/13/24 22:27 Labs: Lab Results 12/13/24 Range/Units 22:27 WBC 5.6 (4.5-10.0) K/mm3 RBC 4.18 L (4.6-6.20) M/mm3 Hgb 12.1 L (14.0-18.0) g/dL Hct 37.3 L (42.0-52.0) % MCV 89.2 (80-100) fl MCH 28.9 (26-34) pg MCHC 32.4 (32-36) g/dl RDW 15.0 H (11.5-14.5) % Plt Count 84 L (150-375) k/mm3 MPV 9.3 (7.4-10.4) fl Immature Gran % (Auto) Not Reportable Neut % (Auto) Not Reportable Lymph % (Auto) Not Reportable [place] % (Auto) Not Reportable Eos % (Auto) Not Reportable Baso % (Auto) Not Reportable Lymph # (Auto) Not Reportable [place] # (Auto) Not Reportable Eos # (Auto) Not Reportable Baso # (Auto) Not Reportable Abs Immat Gran (auto) Not Reportable Absolute Neuts (auto) Not Reportable Absolute Nucleated RBC Not Reportable Total Counted 100 Neutrophils % (Manual) 45 L (46-73) % Band Neutrophils % 0 (0-6) % Lymphocytes % (Manual) 52.0 H (18-44) % Monocytes % (Manual) 2 L (3-9) % Metamyelocytes % 1 % Nucleated RBC % Not Reportable Abs Neuts (Manual) 2.52 (1.3-6.7) K/mm3 Abs Lymphs (Manual) 2.91 (1.1-4.5) K/mm3 Abs Monocytes (Manual) 0.11 (0.1-0.90) K/mm3 Atypical Lymphocytes Present Smudge Cells Few Platelet Estimate Decreased (Adequate) % Immature Plt Fraction 4.0 (0.9-11.2) % Anisocytosis 1+ Schistocytes None seen Sodium 144 (137-145) mmol/L Potassium 3.2 L (3.4-5.0) mmol/L Chloride 102 (98-107) mmol/L Carbon Dioxide 30 (22-30) mmol/L Anion Gap 12 (4-12) mmol/L BUN 5 L (9-20) mg/dL Creatinine 0.79 (0.7-1.3) mg/dL Estim Creat Clear Calc 98 ml/min Estimated GFR > 60 (59 - ) Glucose 120 H (65-110) mg/dL Calcium 8.4 (8.4-10.2) mg/dL Total Bilirubin 1.6 H (0.2-1.3) mg/dL AST 244 H (17-59) U/L ALT 75 H (6-50) U/L Alkaline Phosphatase 316 H (38-126) U/L Total Protein 7.0 (6.3-8.2) g/dL Albumin 3.6 (3.5-5.1) g/dL Lipase 248 (23-300) U/L Discharge Plan Discharge Clinical Impression: Acute on chronic pancreatitis, Cirrhosis of liver, Alcohol use disorder Patient Disposition: Home Condition: Stable Instructions: Antibiotic Form, Abdominal Pain (ED) Additional Instructions: Your symptoms are likely secondary to chronic pancreatitis. Follow-up with your regular doctor. Refrain from alcohol intake. Return with any emergencies. Patient Language: Chinese Follow-up/Referrals: Adelso,Deb Villagomez WATCH ADJUSTER-BC [Primary Care Provider] - Time of Disposition: 01:56
[2024-12-13 23:36] LABS: Alanine Aminotransferase 75 U/L (6-50); Albumin Level 3.6 g/dL (3.5-5.1); Alkaline Phosphatase 316 U/L (38-126); Anion Gap 12 mmol/L (4-12); Aspartate Amino Transferase 244 U/L (17-59); Bilirubin,Total 1.6 mg/dL (0.2-1.3); Blood Urea Nitrogen 5 mg/dL (9-20); Calcium 8.4 mg/dL (8.4-10.2); Carbon Dioxide 30 mmol/L (22-30); Chloride 102 mmol/L (98-107); Estimated CRCL calculation 98 ml/min; Estimated Glomerular Filt Rate > 60; Glucose 120 mg/dL (65-110); Lipase 248 U/L (23-300); Sodium 144 mmol/L (137-145)
--- NOTE | 2024-12-13 23:36 | PC.NURSE ---
ASKED PT TO URINATE IN URINAL AT THIS TIME, HE DID NOT RESPOND. AGAIN ASKED PT TO URINATE INTO URINAL OTHERWISE A CATHETER WILL HAVE TO BE UTILIZED. PT RESPONDED OH NO TO THE SECOND STATEMENT.
--- NOTE | 2024-12-13 23:58 | PC.NURSE ---
patient refusing urine sample at this time. pt states that he is trying and is unable to urinate. patient states that he is unwilling to be catheterized at [facility] time
[2024-12-14] VITALS: BP 127/93; PULSE 86; RESP 14; O2SAT 98
[2024-12-14 00:30] VITALS: BP 115/76; PULSE 69; RESP 15; O2SAT 100
[2024-12-14 01:00] VITALS: BP 113/75; PULSE 71; RESP 20; O2SAT 95
--- NOTE | 2024-12-14 01:06 | PC.NURSE ---
patient refusing a urine sample.
[2024-12-14] MEDS: MORPHINE SULFATE (*CRX) 4 MG/ML INJ IV PUSH (01:15)
--- NOTE | 2024-12-14 01:24 | PC.NURSE ---
patient refusing urine sample collection at this time.
[2024-12-14 01:30] VITALS: BP 119/77; PULSE 78; RESP 15; O2SAT 100
== END 2024-12-14 02:07 | disposition home or self-care (01) ==
PROVIDERS: Emergency Provider Student in an Organized Health Care Education/Training Program; PCP Nurse Practitioner
DX: K85.90 Acute pancreatitis without necrosis or infection, unspecified (principal); K86.1 Other chronic pancreatitis; F10.20 Alcohol dependence, uncomplicated; K70.30 Alcoholic cirrhosis of liver without ascites; Z59.00 Homelessness unspecified
CPT/HCPCS: 36415; 80053; 83690; 85025; 85055; 96361; 96374; 96375; 99284; J1171; J2270; J2405; J7120